=== PATIENT | female | born 1970 | race Caucasian/White ===

== ENCOUNTER → 2017-10-11 08:10 | Outpatient (CLI) | payer OTHER, MEDICAID, SELFPAY ==
[2017-10-11 10:07] LABS: Alanine Aminotransferase 22 IU/L (9-52); Albumin 3.9 g/dL (3.5-5.0); Albumin Globulin Ratio 1.3 (1.0-2.8); Alkaline Phosphatase 59 U/L (38-126); Aspartate Aminotransferase 23 IU/L (14-36); BUN Creatinine Ratio 15.7 (6-22); Bilirubin Total 0.9 mg/dL (0.2-1.3); Blood Urea Nitrogen 11 mg/dL (7-17); Carbon Dioxide 32 mmol/L (22-32); Chloride 101 mmol/L (98-107); Cholesterol 174 mg/dL (140-199); Estimated Glomerular Filt Rate > 60.0 mL/min (>60); Globulin 3.1 g/dL (1.7-4.1); Glucose 82 mg/dL (70-100); HDL Cholesterol 58 mg/dL (40-60); HEMOLYSIS < 15 (0-50); LDL Cholesterol Calculated 106 mg/dL (<100); Potassium 3.8 mmol/L (3.4-5.1); Sodium 139 mmol/L (137-145); Triglycerides 51 mg/dL (35-150)
== END ==
PROVIDERS: PCP Physician Assistant; Visit Provider Physician Assistant
DX: E78.5 Hyperlipidemia, unspecified (principal)
CPT/HCPCS: 36415; 80053; 80061

== ENCOUNTER → 2018-12-25 08:14 | Outpatient (CLI) | payer OTHER, SELFPAY ==
--- NOTE | 2018-12-25 | DI.MG.S_ITS ---
BILATERAL DIGITAL SCREENING MAMMOGRAM 3D/2D WITH CAD: 12/25/2018 CLINICAL: Routine screening. Comparison is made to exams dated: 06/27/2017 mammogram, 04/27/2016 mammogram, 05/28/2014 mammogram, and 03/13/2013 mammogram - [facility]. The tissue of both breasts is heterogeneously dense. This may lower the sensitivity of mammography. Current study was also evaluated with a Computer Aided Detection (CAD) system. No significant masses, calcifications, or other findings are seen in either breast. There has been no significant interval change. IMPRESSION: NEGATIVE There is no mammographic evidence of malignancy. A 1 year screening mammogram is recommended. This exam was interpreted at Station ID: [id number]. NOTE: For mammograms, a report in lay terms will be sent to the patient. Approximately 15% of breast malignancies will not be visualized mammographically. In the management of a palpable breast mass, a negative mammogram must not discourage biopsy of a clinically suspicious lesion. Electronically Signed By: Tom pearson/silvia:12/25/2018 18:47:11 letter sent: Normal Exam ACR BI-RADS Category 1: Negative 3341F
== END ==
PROVIDERS: PCP Physician Assistant; Visit Provider Physician Assistant
DX: Z12.31 Encounter for screening mammogram for malignant neoplasm of breast (principal)
CPT/HCPCS: 77063; 77067

== ENCOUNTER → 2019-01-07 07:33 | Outpatient (CLI) | payer OTHER, MEDICAID, SELFPAY ==
[2019-01-07 09:23] LABS: Add Manual Diff / Slide Review NO; Basophils Absolute Auto 0 /uL (0-100); Basophils Percent Auto 0.5 % (0-2); Eosinophils Absolute Auto 100 /uL (0-450); Eosinophils Percent Auto 2.7 % (2-4); Hematocrit 39.6 % (36-46); Hemoglobin 13.4 g/dL (12.0-16.0); Lymphocytes Absolute Auto 1600 /uL (1100-4500); Lymphocytes Percent Auto 38.2 % (25-40); Mean Corpuscular HGB Conc 33.9 % (30-36); Mean Corpuscular Hemoglobin 28.6 PG (26-34); Mean Corpuscular Volume 84.5 fL (80-100); Monocytes Absolute Auto 500 /uL (0-900); Neutrophils Absolute Auto 2000 /uL (1500-7000); Neutrophils Percent Auto 46.6 % (50-75); Platelet Count 177 X10^3/uL (150-400); Red Blood Cell Count 4.68 X10^6/uL (4.0-5.2); White Blood Cell Count 4.2 X10^3/uL (4.5-11.0)
[2019-01-07 09:33] LABS: Alanine Aminotransferase 19 IU/L (<35); Albumin Globulin Ratio 1.5 (1.0-2.8); Alkaline Phosphatase 71 U/L (38-126); Aspartate Aminotransferase 26 IU/L (14-36); BUN Creatinine Ratio 14.3 (6-22); Blood Urea Nitrogen 10 mg/dL (7-17); Calcium 8.8 mg/dL (8.4-10.2); Carbon Dioxide 29 mmol/L (22-32); Chloride 104 mmol/L (98-107); Cholesterol 197 mg/dL (140-199); Estimated Glomerular Filt Rate > 60.0 mL/min (>60); Globulin 2.7 g/dL (1.7-4.1); Glucose 78 mg/dL (70-100); HDL Cholesterol 60 mg/dL (40-60); HEMOLYSIS < 15 (0-50); LDL Cholesterol Calculated 126 mg/dL (<100); Sodium 140 mmol/L (137-145); Total Protein 6.7 g/dL (6.3-8.2); Triglycerides 56 mg/dL (35-150)
[2019-01-07 09:59] LABS: Thyroid Stimulating Hormone 2.55 uIU/mL (0.47-4.68)
== END ==
PROVIDERS: PCP Physician Assistant; Visit Provider Physician Assistant
DX: Z00.00 Encounter for general adult medical examination without abnormal findings (principal)
CPT/HCPCS: 36415; 80053; 80061; 84443; 85025

== ENCOUNTER → 2019-12-18 08:45 | Outpatient (CLI) | payer OTHER, MEDICAID, SELFPAY ==
[2019-12-18 10:19] LABS: Add Manual Diff / Slide Review NO; Basophils Absolute Auto 0 /uL (0-100); Basophils Percent Auto 0.4 % (0-2); Eosinophils Absolute Auto 100 /uL (0-450); Eosinophils Percent Auto 2.6 % (2-4); Hematocrit 40.8 % (36-46); Lymphocytes Absolute Auto 1600 /uL (1100-4500); Lymphocytes Percent Auto 34.5 % (25-40); Mean Corpuscular HGB Conc 34.4 % (30-36); Mean Corpuscular Hemoglobin 29.2 PG (26-34); Mean Corpuscular Volume 84.9 fL (80-100); Monocytes Absolute Auto 500 /uL (0-900); Monocytes Percent Auto 10.2 % (3-14); Neutrophils Absolute Auto 2400 /uL (1500-7000); Neutrophils Percent Auto 52.3 % (50-75); Platelet Count 154 X10^3/uL (150-400); Red Blood Cell Count 4.81 X10^6/uL (4.0-5.2); White Blood Cell Count 4.5 X10^3/uL (4.5-11.0)
[2019-12-18 10:53] LABS: Alanine Aminotransferase 31 IU/L (<35); Albumin Globulin Ratio 1.3 (1.0-2.8); Alkaline Phosphatase 65 U/L (38-126); Aspartate Aminotransferase 30 IU/L (14-36); BUN Creatinine Ratio 19.4 (6-22); Bilirubin Total 0.9 mg/dL (0.2-1.3); Blood Urea Nitrogen 13 mg/dL (7-17); Carbon Dioxide 31 mmol/L (22-32); Chloride 103 mmol/L (98-107); Cholesterol 201 mg/dL (140-199); Estimated Glomerular Filt Rate > 60.0 mL/min (>60); Globulin 3.2 g/dL (1.7-4.1); Glucose 82 mg/dL (70-100); HDL Cholesterol 59 mg/dL (40-60); HEMOLYSIS < 15 (0-50); LDL Cholesterol Calculated 126 mg/dL (<100); Potassium 4.3 mmol/L (3.4-5.1); Sodium 136 mmol/L (137-145); Total Protein 7.2 g/dL (6.3-8.2); Triglycerides 81 mg/dL (35-150)
[2019-12-18 11:12] LABS: TSH w/ Reflex to FT4 1.91 uIU/mL (0.47-4.68)
== END ==
PROVIDERS: PCP Registered Nurse Diabetes Educator; Referring Provider Registered Nurse Diabetes Educator; Visit Provider Registered Nurse Diabetes Educator
DX: Z00.00 Encounter for general adult medical examination without abnormal findings (principal)
CPT/HCPCS: 36415; 80053; 80061; 84443; 85025

== ENCOUNTER → 2019-12-28 16:16 | Outpatient (CLI) | payer OTHER, MEDICAID, SELFPAY ==
--- NOTE | 2019-12-28 16:17 | DI.MG.S_ITS ---
BILATERAL DIGITAL SCREENING MAMMOGRAM 3D/2D WITH CAD: 12/28/2019 CLINICAL: Routine screening. Comparison is made to exams dated: 12/25/2018 mammogram, 06/27/2017 mammogram, and 04/27/2016 mammogram - [facility]. The tissue of both breasts is heterogeneously dense. This may lower the sensitivity of mammography. Current study was also evaluated with a Computer Aided Detection (CAD) system. No significant masses, calcifications, or other findings are seen in either breast. There has been no significant interval change. IMPRESSION: NEGATIVE There is no mammographic evidence of malignancy. A 1 year screening mammogram is recommended. This exam was interpreted at Station ID: [id number]. NOTE: For mammograms, a report in lay terms will be sent to the patient. Approximately 15% of breast malignancies will not be visualized mammographically. In the management of a palpable breast mass, a negative mammogram must not discourage biopsy of a clinically suspicious lesion. Electronically Signed By: Agata otero/silvia:12/28/2019 17:35:36 letter sent: Normal Exam ACR BI-RADS Category 1: Negative 3341F
== END ==
PROVIDERS: PCP Registered Nurse Diabetes Educator; Referring Provider Registered Nurse Diabetes Educator; Visit Provider Registered Nurse Diabetes Educator
DX: Z12.31 Encounter for screening mammogram for malignant neoplasm of breast (principal)
CPT/HCPCS: 77063; 77067

== ENCOUNTER → 2020-12-16 13:21 | Outpatient (CLI) | payer OTHER, MEDICAID, SELFPAY ==
--- NOTE | 2020-12-16 13:22 | DI.RAD.S_ITS ---
PROCEDURE: XR HIP W PEL IF DONE RT 2V INDICATIONS: right hip pain TECHNIQUE: AP pelvis with lateral view(s) of the right hip(s). COMPARISON: None. FINDINGS: Bones: No fractures or dislocations. Pelvic ring appears intact. No suspicious bony lesions. Soft tissues: The visualized bowel gas pattern is normal. No suspicious soft tissue calcifications. IMPRESSION: Right hip without acute fracture or malalignment. No significant degenerative changes. Dictated by: Aj Benson M.D. on 12/16/2020 at 14:31 Approved by: Aj Benson M.D. on 12/16/2020 at 14:33
== END ==
PROVIDERS: PCP Registered Nurse Diabetes Educator; Referring Provider Registered Nurse; Visit Provider Registered Nurse
DX: M25.551 Pain in right hip (principal)
CPT/HCPCS: 73502

== ENCOUNTER → 2020-12-28 09:15 | Outpatient (CLI) | payer OTHER, MEDICAID, SELFPAY ==
--- NOTE | 2020-12-28 09:16 | DI.MG.S_ITS ---
BILATERAL DIGITAL SCREENING MAMMOGRAM 3D/2D WITH CAD: 12/28/2020 CLINICAL: Routine screening. Comparison is made to exams dated: 12/28/2019 mammogram, 12/25/2018 mammogram, and 06/27/2017 mammogram - [facility]. The tissue of both breasts is heterogeneously dense. This may lower the sensitivity of mammography. Current study was also evaluated with a Computer Aided Detection (CAD) system. No significant masses, calcifications, or other findings are seen in either breast. There has been no significant interval change. IMPRESSION: NEGATIVE There is no mammographic evidence of malignancy. A 1 year screening mammogram is recommended. This exam was interpreted at Station ID: [id number]. NOTE: For mammograms, a report in lay terms will be sent to the patient. Approximately 15% of breast malignancies will not be visualized mammographically. In the management of a palpable breast mass, a negative mammogram must not discourage biopsy of a clinically suspicious lesion. Electronically Signed By: Jeremiah weaver/silvia:12/28/2020 09:45:07 letter sent: Normal Exam ACR BI-RADS Category 1: Negative 3341F
== END ==
PROVIDERS: PCP Registered Nurse Diabetes Educator; Referring Provider Registered Nurse Diabetes Educator; Visit Provider Registered Nurse Diabetes Educator
DX: Z12.31 Encounter for screening mammogram for malignant neoplasm of breast (principal)
CPT/HCPCS: 77063; 77067

== ENCOUNTER → 2020-12-29 08:23 | Outpatient (CLI) | payer OTHER, MEDICAID, SELFPAY ==
[2020-12-29 09:13] LABS: Add Manual Diff / Slide Review NO; Basophils Absolute Auto 0 /uL (0-100); Basophils Percent Auto 0.6 % (0-2); Eosinophils Absolute Auto 100 /uL (0-450); Eosinophils Percent Auto 2.5 % (2-4); Hematocrit 39.3 % (36-46); Hemoglobin 13.5 g/dL (12.0-16.0); Lymphocytes Absolute Auto 1500 /uL (1100-4500); Lymphocytes Percent Auto 36.5 % (25-40); Mean Corpuscular HGB Conc 34.3 % (30-36); Mean Corpuscular Volume 84.5 fL (80-100); Monocytes Absolute Auto 400 /uL (0-900); Monocytes Percent Auto 10.1 % (3-14); Neutrophils Absolute Auto 2100 /uL (1500-7000); Neutrophils Percent Auto 50.3 % (50-75); Platelet Count 195 X10^3/uL (150-400); Red Blood Cell Count 4.65 X10^6/uL (4.0-5.2); Red Cell Distribution Width 13.3 % (11.6-14.8); White Blood Cell Count 4.2 X10^3/uL (4.5-11.0)
[2020-12-29 09:32] LABS: HEMOLYSIS < 15 (0-50); Iron 78 ug/dL (37-170)
[2020-12-29 09:38] LABS: Alanine Aminotransferase 26 IU/L (<35); Albumin 4.2 g/dL (3.5-5.0); Albumin Globulin Ratio 1.5 (1.0-2.8); Alkaline Phosphatase 78 U/L (38-126); Aspartate Aminotransferase 29 IU/L (14-36); BUN Creatinine Ratio 17.6 (6-22); Blood Urea Nitrogen 13 mg/dL (7-17); Carbon Dioxide 27 mmol/L (22-32); Chloride 105 mmol/L (98-107); Cholesterol 206 mg/dL (140-199); Estimated Glomerular Filt Rate > 60.0 mL/min (>60); Globulin 2.8 g/dL (1.7-4.1); Glucose 87 mg/dL (70-100); HDL Cholesterol 66 mg/dL (40-60); HEMOLYSIS < 15 (0-50); LDL Cholesterol Calculated 128 mg/dL (<100); Potassium 3.9 mmol/L (3.4-5.1); Sodium 141 mmol/L (137-145); Triglycerides 58 mg/dL (35-150)
[2020-12-29 09:43] LABS: Percent Iron Saturation 27 % (15-50); Total Iron Binding Capacity 290 ug/dL (265-497); Transferrin 231 mg/dL (206-381)
== END ==
PROVIDERS: PCP Registered Nurse Diabetes Educator; Referring Provider Registered Nurse; Visit Provider Registered Nurse
DX: R53.83 Other fatigue (principal); E78.5 Hyperlipidemia, unspecified; Z86.39 Personal history of other endocrine, nutritional and metabolic disease
CPT/HCPCS: 36415; 80053; 80061; 83540; 83550; 84443; 85025

== ENCOUNTER 2021-02-23 07:30 | Outpatient (RCR) | payer OTHER, MEDICAID, SELFPAY ==
--- NOTE | 2021-01-13 16:38 | PT.OIE ---
Current Diagnoses Pain in right hip (01/13/21) Past Medical History (Last Reviewed 12/23/20 @ 18:38 by KRISTEN Mesa) Abnormal Pap smear of cervix (~2019) Cervical cancer screening Constipation Dyspareunia Fatigue Infertility Mood swings Painful menstrual periods Right hip pain Screening for HPV (human papillomavirus) Visit Care Team Role Provider Type KRISTEN Santamaria Family Provider Advanced Bankruptcy Law Specialist Primary Care Provider Specialty: Medical Address: [address] [place] [address], [facility] Email: [email or web address] KRISTEN Mesa Attending Provider Advanced Bankruptcy Law Specialist Referring Provider Specialty: Medical Address: [address] [place] [address], [id number] Email: 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 PT-OP-B Current Condition Start: 01/12/21 17:19 Freq: Status: Active Protocol: Document 01/13/21 12:50 LRN (Rec: 01/13/21 16:35 LRN [id number]) Current Condition History of Current Condition Onset Date 6 months ago Current Complaints R posterior hip pain sometimes with walking when WBing on it . History of Current Condition R posterior hip pain sometimes feels it walking and sometime not. [place] pain in the R hip when lying on it for the past 20 yrs ago. Pt complains of arthritis and pain all over that comes and goes. Prior Treatments and Tests X-ray of hip showed nothing. Developmental History Developmental History Pt is [place] [facility] . Does yoga, hasn't had great motion in the R hip. Treatment Goals Patient/Caregiver Goals Pt goal is to: -Learn what good yoga poses and exercises she can do to keep from getting worse. -Learn to walk more evenly. 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 Baseline Function- Recreation/Hobbies Walks daily 45-60' with dog, hike 1-1.5 hrs 1x/week, yoga 2x/week. Baseline Function- Other Mother of a 9 yo son, spouse. Current Functional Impairments (Reported) Functional Limitations- ADL's Sitting 1.5 hr before becoming uncomfortable Functional Limitations- Mobility/Gait Sometimes R hip hurts with walking. Functional Limitations- Work/School Sometimes r hip hurts sitting. Personal Factors Other Personal Factors That May Effect As a was treated for Therapy/Recovery underdeveloped hips. PT-OP-C Subjective Start: 01/12/21 17:19 Freq: Status: Active Protocol: Document 01/13/21 12:50 LRN (Rec: 01/13/21 16:35 LRN [id number]) Patient Questionnaires Lower Extremity Functional Scale LEFS Score 72 LEFS Impairment 1 to 19% Impaired (Score 63-79 ) OP-PT Pain Assessment Pain Assessment Grid Paper Pain Assessment Grid Completed Yes Location Low back/sacrum Pain Location Details Low back at sacral level Intensity 3 Scale Used Numeric (0 - 10) Description Dull Frequency Intermittent Other Pain Aggravating Factors Mid cycle of period R hip Pain Location Details R posterior hip Intensity 3 Scale Used Numeric (0 - 10) Description Dull Frequency Frequent Other Pain Aggravating Factors Yoga pose fingers to floor ( uncomfortable tension in hamstrings) PT-OP-G Mobility & Gait Start: 01/12/21 17:19 Freq: Status: Active Protocol: Document 01/13/21 12:50 LRN (Rec: 01/13/21 16:35 LRN [id number]) OP Gait Assessment Gait Gait Assistance Required: Independent Assistive Devices Assistive Device None Gait Deviations General Gait Pattern Antalgic Factors Limiting Gait Function Factors Limiting Gait Function Decreased Strength,Pain Stair Climbing Evaluation Evaluation Level of Assist On Stairs Independent Devices Stair Climbing Assistive Devices None Technique/Endurance Stair Climbing Direction Ascend and Descend Stair Climbing Technique Step Over Step PT-OP-H Neuro Start: 01/12/21 17:19 Freq: Status: Active Protocol: Document 01/13/21 12:50 LRN (Rec: 01/13/21 16:35 LRN [id number]) Sensation Evaluation Gross Sensation Gross Sensation WNL PT-OP-J Posture/Palpation/Skin Start: 01/12/21 17:19 Freq: Status: Active Protocol: Document 01/13/21 12:50 LRN (Rec: 01/13/21 16:35 LRN [id number]) Posture Evaluation Position Standing L-Spine Posture Increased Lordosis Pelvis Posture (R) Iliac Crest Superior Knee Posture (L) Genu Varus,(R) Genu Varus Comments Posture Comments R high PSIS, greater trochanter Palpation Assessment Location Sacrum Palpation Location Sacrum Palpation Details Decrease PA at ALA & LASHAE on right. Decreased inferior glide on the left. R hip Palpation Location R Iscial Tuberosity Palpation Details Pt reporting tenderness more internal. PT-OP-K Range of Motion Start: 01/12/21 17:19 Freq: Status: Active Protocol: Document 01/13/21 12:50 LRN (Rec: 01/13/21 16:35 LRN [id number]) Hip Goniometric Range of Motion Hip Right Passive Hip ROM WFL No Testing Position Supine Straight Leg Raise 75 Internal Rotation 30 External Rotation 55 Comments Pain inside joint. Left Passive Hip ROM WFL Yes Testing Position Supine Straight Leg Raise 110 Internal Rotation 35 External Rotation 65 Knee Goniometric Range of Motion Knee Right Knee ROM WFL Yes Patient Position Supine Left Knee ROM WFL Yes Patient Position Supine PT-OP-L Special Tests Start: 01/12/21 17:19 Freq: Status: Active Protocol: Document 01/13/21 12:50 LRN (Rec: 01/13/21 16:35 LRN [id number]) Special Tests Hip Special Tests Thigh Thrust Test Results - right Straight Leg Raise Test Results possible + right Comments 75 deg Mark Test Results + right Comments Pain in buttock Stinchfield Resisted Hip Flexion Test Results - right Scour Test Test Results - right Log Roll Test Test Results - right BLAKE Test Results + right PT-OP-M Strength Start: 01/12/21 17:19 Freq: Status: Active Protocol: Document 01/13/21 12:50 LRN (Rec: 01/13/21 16:35 LRN [id number]) Hip Strength Hip Manual Muscle Testing Right Comments Generally 5/5. Pain with IR>ER Left Comments Generally 5/5 . PT-OP-Q Treatments Start: 01/12/21 17:19 Freq: Status: Active Protocol: Document 01/13/21 12:50 LRN (Rec: 01/13/21 16:35 LRN [id number]) Therapeutic Exercises Supine Exercises R LE hamstring/neural stretch Side right Reps/Minutes 2' Comments Phys & v cuing for max tolerated stretch precaution and proper performance. Self-Care/Home Management Treatment Education Other Education Discussed results of evaluation, goals, and plan of care (POC). Pt agreeable to goals and POC. Activities Self-Care/Home Management Activities Issued & reviewed HEP: R LE hamstring/neural stretch PT-OP-T Assessment and Plan Start: 01/12/21 17:19 Freq: Status: Active Protocol: Document 01/13/21 12:50 LRN (Rec: 01/13/21 16:35 LRN [id number]) Physical Therapy Assessment Rehab Potential Rehabilitation Potential Excellent Evaluation Complexity Number of Personal Factors/Comorbidities 1-2 Number of Body Systems Impaired 4 or More Clinical Presentation at Evaluation Evolving Impairments Impairments Activity Tolerance,Pain,ROM, Soft Tissue Mobility Goals Three Impairment Decreased R hip mobility Impairment PSLR: 75 right, 110 left ER: 55 right, 65 left Short Term Goal (STG) Pt will be independent in a hip stretch ex program incorporating yoga for stretch . Drafter Goal (LTG) Improve R hip mobility (PSLR & ER) with pt able to go up/ down stairs without pain and a normal gait pattern. LTG Duration 04/13/21 Two Impairment R posterior hip & low back/ sacral pain rated 3/10 Short Term Goal (STG) Decrease hip pain with pt able to put socks/shoes on without pain. STG Duration 01/27/21 Mcc Goal (LTG) Decrease pain to 0-1/10 with pt able to sit for 1 hour without an increase in pain. LTG Duration 04/13/21 One Impairment Lacks appropriate self care HEP. Mcc Goal (LTG) Pt will be independent with a self care HEP of flexibility exercises. LTG Duration 04/13/21 Assessment Summary Assessment Pt presents with R hamstring tightness with possible lumbar neural involvement (PSLR 75 deg's). She has pain in the R buttock with gait when in weightbearing. Her R buttock pain is not palpable because it is described as more internal. The pt was mostly negative with testing for R SIJ dysfunction and is + for tight hip flexors. She presents with an open pattern of the pelvis and mobility limitations with hip ER, PSLR & flexion; therefore she appears to have soft tissue dysfunction of her R hip muscles attached to the Ischial Tuberosity, although she has no pain with palpation . Further assessment for R hamstring, Sacral nerve (S2-S4 ) or lumbar involvment will be done at the next appointment. The pt will benefit from skilled physical therapy to achieve the above stated goal. Physical Therapy Plan Frequency and Duration Frequency of Treatment 2x/Week Plan of Care Start Date 01/13/21 Plan of Care End Date 04/13/21 Therapeutic Interventions Therapeutic Interventions Gait Training,Home Exercise Program,Joint Mobilizations, Manual Therapy,Neuromuscular Re-education,Patient/Caregiver Education,Self-Care/Home Management,Soft Tissue Mobilization,Therapeutic Activities,Therapeutic Exercises Modalities Cold Pack/Ice Massage,Hot Packs Next Visit Focus/Plan Next Note Type Treatment Note Next Visit Plan Review LE neural stretch, start correction for open pattern (Check & treat shear, R PA, R LASHAE PA & inferior glide of L sacrum). Assess core and hamstring strength and assess for hamstring strain or L/S involvement (try lumbar traction). Correct gait deviations.
--- NOTE | 2021-01-13 16:39 | PT.OPPOC ---
Addendum entered and electronically signed by Jenifer Gupta, PT 01/13/21 16:44: Send Original Note: Physical, Occupational & Speech Therapy At [facility] Current Diagnoses Pain in right hip (01/13/21) Visit Care Team Role Provider Type KRISTEN Santamaria Family Provider Advanced [employer] Craftsman Primary Care Provider Specialty: Medical Address: [address] [place] [address], [facility] Email: [email or web address] KRISTEN Mesa Attending Provider [employer] Craftsman Referring Provider Specialty: Medical Address: [address] [place] [address], [id number] Email: [email or web address] Plan Of Care PT-OP-T Assessment and Plan Start: 01/12/21 17:19 Freq: Status: Active Protocol: Document 01/13/21 12:50 LRN (Rec: 01/13/21 16:35 LRN [id number]) Physical Therapy Assessment Rehab Potential Rehabilitation Potential Excellent Evaluation Complexity Number of Personal Factors/Comorbidities 1-2 Number of Body Systems Impaired 4 or More Clinical Presentation at Evaluation Evolving Impairments Impairments Activity Tolerance,Pain,ROM, Soft Tissue Mobility Goals Three Impairment Decreased R hip mobility Impairment PSLR: 75 right, 110 left ER: 55 right, 65 left Short Term Goal (STG) Pt will be independent in a hip stretch ex program incorporating yoga for stretch . Group Home Goal (LTG) Improve R hip mobility (PSLR & ER) with pt able to go up/ down stairs without pain and a normal gait pattern. LTG Duration 04/13/21 Two Impairment R posterior hip & low back/ sacral pain rated 3/10 Short Term Goal (STG) Decrease hip pain with pt able to put socks/shoes on without pain. STG Duration 01/27/21 Group Home Goal (LTG) Decrease pain to 0-1/10 with pt able to sit for 1 hour without an increase in pain. LTG Duration 04/13/21 One Impairment Lacks appropriate self care HEP. Group Home Goal (LTG) Pt will be independent with a self care HEP of flexibility exercises. LTG Duration 04/13/21 Assessment Summary Assessment Pt presents with R hamstring tightness with possible lumbar neural involvement (PSLR 75 deg's). She has pain in the R buttock with gait when in weightbearing. Her R buttock pain is not palpable because it is described as more internal. The pt was mostly negative with testing for R SIJ dysfunction and is + for tight hip flexors. She presents with an open pattern of the pelvis and mobility limitations with hip ER, PSLR & flexion; therefore she appears to have soft tissue dysfunction of her R hip muscles attached to the Ischial Tuberosity, although she has no pain with palpation . Further assessment for R hamstring, Sacral nerve (S2-S4 ) or lumbar involvment will be done at the next appointment. The pt will benefit from skilled physical therapy to achieve the above stated goal. Physical Therapy Plan Frequency and Duration Frequency of Treatment 2x/Week Plan of Care Start Date 01/13/21 Plan of Care End Date 04/13/21 Therapeutic Interventions Therapeutic Interventions Gait Training,Home Exercise Program,Joint Mobilizations, Manual Therapy,Neuromuscular Re-education,Patient/Caregiver Education,Self-Care/Home Management,Soft Tissue Mobilization,Therapeutic Activities,Therapeutic Exercises Modalities Cold Pack/Ice Massage,Hot Packs Next Visit Focus/Plan Next Note Type Treatment Note Next Visit Plan Review LE neural stretch, start correction for open pattern (Check & treat shear, R PA, R LASHAE PA & inferior glide of L sacrum). Assess core and hamstring strength and assess for hamstring strain or L/S involvement (try lumbar traction). Correct gait deviations. Plan of Care Dates Plan of Care Start Date 01/13/21 Plan of Care End Date 04/13/21 Electronically Signed by: Jenifer Gupta, PT 01/13/21 [id number] Please Sign and Return: I have reviewed this Plan of Care and certify that the skilled therapy services above are required to meet the patient?s needs. Physician Signature Date Printed Name and Credentials Clinical Instructor Signature Printed Name and Credentials
--- NOTE | 2021-01-17 14:42 | PT.OTN ---
Current Diagnoses Pain in right hip (01/17/21) Physical Therapy Treatment Note PT-OP-A Visit Information Start: 01/12/21 17:19 Freq: Status: Active Protocol: Document 01/17/21 13:42 LRN (Rec: 01/17/21 14:40 LRN [id number]) Out-Patient Physical Therapy Visit Information Visit Information Visit Type Treatment Note Visit Note Pt 12' late. 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 PT-OP-B Current Condition Start: 01/12/21 17:19 Freq: Status: Active Protocol: Document 01/13/21 12:50 LRN (Rec: 01/13/21 16:35 LRN [id number]) Current Condition History of Current Condition Onset Date 6 months ago Current Complaints R posterior hip pain sometimes with walking when WBing on it . History of Current Condition R posterior hip pain sometimes feels it walking and sometime not. [place] pain in the R hip when lying on it for the past 20 yrs ago. Pt complains of arthritis and pain all over that comes and goes. Prior Treatments and Tests X-ray of hip showed nothing. Developmental History Developmental History Pt is [employer] of [employer] . Does yoga, hasn't had great motion in the R hip. Treatment Goals Patient/Caregiver Goals Pt goal is to: -Learn what good yoga poses and exercises she can do to keep from getting worse. -Learn to walk more evenly. 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 Baseline Function- Recreation/Hobbies Walks daily 45-60' with dog, hike 1-1.5 hrs 1x/week, yoga 2x/week. Baseline Function- Other Mother of a 9 yo son, spouse. Current Functional Impairments (Reported) Functional Limitations- ADL's Sitting 1.5 hr before becoming uncomfortable Functional Limitations- Mobility/Gait Sometimes R hip hurts with walking. Functional Limitations- Work/School Sometimes r hip hurts sitting. Personal Factors Other Personal Factors That May Effect As a was treated for Therapy/Recovery underdeveloped hips. PT-OP-C Subjective Start: 01/12/21 17:19 Freq: Status: Active Protocol: Document 01/17/21 13:42 LRN (Rec: 01/17/21 14:40 LRN [id number]) OP-PT Subjective Patient Comments Patient Comments Same PT-OP-G Mobility & Gait Start: 01/12/21 17:19 Freq: Status: Active Protocol: Document 01/13/21 12:50 LRN (Rec: 01/13/21 16:35 LRN [id number]) OP Gait Assessment Gait Gait Assistance Required: Independent Assistive Devices Assistive Device None Gait Deviations General Gait Pattern Antalgic Factors Limiting Gait Function Factors Limiting Gait Function Decreased Strength,Pain Stair Climbing Evaluation Evaluation Level of Assist On Stairs Independent Devices Stair Climbing Assistive Devices None Technique/Endurance Stair Climbing Direction Ascend and Descend Stair Climbing Technique Step Over Step PT-OP-H Neuro Start: 01/12/21 17:19 Freq: Status: Active Protocol: Document 01/13/21 12:50 LRN (Rec: 01/13/21 16:35 LRN [id number]) Sensation Evaluation Gross Sensation Gross Sensation WNL PT-OP-J Posture/Palpation/Skin Start: 01/12/21 17:19 Freq: Status: Active Protocol: Document 01/13/21 12:50 LRN (Rec: 01/13/21 16:35 LRN [id number]) Posture Evaluation Position Standing L-Spine Posture Increased Lordosis Pelvis Posture (R) Iliac Crest Superior Knee Posture (L) Genu Varus,(R) Genu Varus Comments Posture Comments R high PSIS, greater trochanter Palpation Assessment Location Sacrum Palpation Location Sacrum Palpation Details Decrease PA at ALA & LASHAE on right. Decreased inferior glide on the left. R hip Palpation Location R Iscial Tuberosity Palpation Details Pt reporting tenderness more internal. PT-OP-K Range of Motion Start: 01/12/21 17:19 Freq: Status: Active Protocol: Document 01/13/21 12:50 LRN (Rec: 01/13/21 16:35 LRN [id number]) Hip Goniometric Range of Motion Hip Right Passive Hip ROM WFL No Testing Position Supine Straight Leg Raise 75 Internal Rotation 30 External Rotation 55 Comments Pain inside joint. Left Passive Hip ROM WFL Yes Testing Position Supine Straight Leg Raise 110 Internal Rotation 35 External Rotation 65 Knee Goniometric Range of Motion Knee Right Knee ROM WFL Yes Patient Position Supine Left Knee ROM WFL Yes Patient Position Supine PT-OP-L Special Tests Start: 01/12/21 17:19 Freq: Status: Active Protocol: Document 01/13/21 12:50 LRN (Rec: 01/13/21 16:35 LRN [id number]) Special Tests Hip Special Tests Thigh Thrust Test Results - right Straight Leg Raise Test Results possible + right Comments 75 deg Mark Test Results + right Comments Pain in buttock Stinchfield Resisted Hip Flexion Test Results - right Scour Test Test Results - right Log Roll Test Test Results - right BLAKE Test Results + right PT-OP-M Strength Start: 01/12/21 17:19 Freq: Status: Active Protocol: Document 01/13/21 12:50 LRN (Rec: 01/13/21 16:35 LRN [id number]) Hip Strength Hip Manual Muscle Testing Right Comments Generally 5/5. Pain with IR>ER Left Comments Generally 5/5 . PT-OP-Q Treatments Start: 01/12/21 17:19 Freq: Status: Active Protocol: Document 01/17/21 13:42 LRN (Rec: 01/17/21 14:40 LRN [id number]) Therapeutic Exercises Supine Exercises R LE hamstring/neural stretch Supine Exercise Name R Hamstring/LE neural stretch Side right Reps/Minutes 3' Comments Phys & v cuing for max tolerated stretch. Sitting Exercises Hamstring stretch Sitting Exercise Name R Hamstring/LE neural stretch Side right Reps/Minutes 3' Comments Phys & v cuing for max tolerated stretch precaution and proper performance. Manual Therapy Treatment Soft Tissue Mobilization Sacrum Body Location R ALA PA, R LASHAE PA, R LASHAE shear to left. Mobilization Type Myofascial Release,Sustained Pressure Intensity/Depth Moderate Body Position Prone x 2 & Supine PT-OP-T Assessment and Plan Start: 01/12/21 17:19 Freq: Status: Active Protocol: Document 01/17/21 13:42 LRN (Rec: 01/17/21 14:40 LRN [id number]) Physical Therapy Assessment Goals Three Impairment Decreased R hip mobility Impairment PSLR: 75 right, 110 left ER: 55 right, 65 left Short Term Goal (STG) Pt will be independent in a hip stretch ex program incorporating yoga for stretch . Senior Living Goal (LTG) Improve R hip mobility (PSLR & ER) with pt able to go up/ down stairs without pain and a normal gait pattern. LTG Duration 04/13/21 Two Impairment R posterior hip & low back/ sacral pain rated 3/10 Short Term Goal (STG) Decrease hip pain with pt able to put socks/shoes on without pain. STG Duration 01/27/21 Pharmacist Aide Goal (LTG) Decrease pain to 0-1/10 with pt able to sit for 1 hour without an increase in pain. LTG Duration 04/13/21 One Impairment Lacks appropriate self care HEP. Senior Living Goal (LTG) Pt will be independent with a self care HEP of flexibility exercises. (01/17/21: HEP added: R hamstring/LE neural stretch). LTG Duration 04/13/21 (01/17/21: Progressed) Progress Towards Goals Progress Comments Progressed HEP. Assessment Summary Assessment Pt needed review of LE neural/ hamstring stretch and appeared to have a good understanding after review/training. Pt had no c/o R buttock pain to start. Did not check soft tissue dysfunction of her R hip muscles attached to the Ischial Tuberosity due to no c /o R hip pain. Pt Still in open pattern (although has not given ), has stiffness at R sacral sulcus, sacrum and R innominate. Stiffness probably due to response to fall in the past. Physical Therapy Plan Frequency and Duration Frequency of Treatment 2x/Week Plan of Care Start Date 01/13/21 Plan of Care End Date 04/13/21 Next Visit Focus/Plan Next Note Type Treatment Note Next Visit Plan Recheck PSLR. Assess core and hamstring strength, Assess for hamstring strain or L/S involvement (try lumbar traction if pain). Assess response to correction for open pattern (Check shear sacrum to left, R PA, R LASHAE PA & inferior glide of R sacrum). Correct gait deviations.
--- NOTE | 2021-01-31 15:34 | PT.OTN ---
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 PT-OP-B Current Condition Start: 01/12/21 17:19 Freq: Status: Active Protocol: Document 01/13/21 12:50 LRN (Rec: 01/13/21 16:35 LRN [id number]) Current Condition History of Current Condition Onset Date 6 months ago Current Complaints R posterior hip pain sometimes with walking when WBing on it . History of Current Condition R posterior hip pain sometimes feels it walking and sometime not. [place] pain in the R hip when lying on it for the past 20 yrs ago. Pt complains of arthritis and pain all over that comes and goes. Prior Treatments and Tests X-ray of hip showed nothing. Developmental History Developmental History Pt is [place] of [facility] . Does yoga, hasn't had great motion in the R hip. Treatment Goals Patient/Caregiver Goals Pt goal is to: -Learn what good yoga poses and exercises she can do to keep from getting worse. -Learn to walk more evenly. 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 Baseline Function- Recreation/Hobbies Walks daily 45-60' with dog, hike 1-1.5 hrs 1x/week, yoga 2x/week. Baseline Function- Other Mother of a 9 yo son, spouse. Current Functional Impairments (Reported) Functional Limitations- ADL's Sitting 1.5 hr before becoming uncomfortable Functional Limitations- Mobility/Gait Sometimes R hip hurts with walking. Functional Limitations- Work/School Sometimes r hip hurts sitting. Personal Factors Other Personal Factors That May Effect As a was treated for Therapy/Recovery underdeveloped hips. PT-OP-C Subjective Start: 01/12/21 17:19 Freq: Status: Active Protocol: Document 01/31/21 14:17 LRN (Rec: 01/31/21 15:32 LRN [id number]) OP-PT Subjective Patient Comments Patient Comments Yoga move used to be tight and uncomfortable, but not anymore. Getting a little pain in buttock walking, states it's better. [place] something was released the last visit. PT-OP-G Mobility & Gait Start: 01/12/21 17:19 Freq: Status: Active Protocol: Document 01/13/21 12:50 LRN (Rec: 01/13/21 16:35 LRN [id number]) OP Gait Assessment Gait Gait Assistance Required: Independent Assistive Devices Assistive Device None Gait Deviations General Gait Pattern Antalgic Factors Limiting Gait Function Factors Limiting Gait Function Decreased Strength,Pain Stair Climbing Evaluation Evaluation Level of Assist On Stairs Independent Devices Stair Climbing Assistive Devices None Technique/Endurance Stair Climbing Direction Ascend and Descend Stair Climbing Technique Step Over Step PT-OP-H Neuro Start: 01/12/21 17:19 Freq: Status: Active Protocol: Document 01/13/21 12:50 LRN (Rec: 01/13/21 16:35 LRN [id number]) Sensation Evaluation Gross Sensation Gross Sensation WNL PT-OP-J Posture/Palpation/Skin Start: 01/12/21 17:19 Freq: Status: Active Protocol: Document 01/13/21 12:50 LRN (Rec: 01/13/21 16:35 LRN [id number]) Posture Evaluation Position Standing L-Spine Posture Increased Lordosis Pelvis Posture (R) Iliac Crest Superior Knee Posture (L) Genu Varus,(R) Genu Varus Comments Posture Comments R high PSIS, greater trochanter Palpation Assessment Location Sacrum Palpation Location Sacrum Palpation Details Decrease PA at ALA & LASHAE on right. Decreased inferior glide on the left. R hip Palpation Location R Iscial Tuberosity Palpation Details Pt reporting tenderness more internal. PT-OP-K Range of Motion Start: 01/12/21 17:19 Freq: Status: Active Protocol: Document 01/31/21 14:17 LRN (Rec: 01/31/21 15:32 LRN [id number]) Hip Goniometric Range of Motion Hip Right Passive Hip ROM WFL No Testing Position Supine Straight Leg Raise 85 Internal Rotation 45 External Rotation 65 Left Passive Testing Position Supine Straight Leg Raise 100 Internal Rotation 40 External Rotation 70 PT-OP-L Special Tests Start: 01/12/21 17:19 Freq: Status: Active Protocol: Document 01/13/21 12:50 LRN (Rec: 01/13/21 16:35 LRN [id number]) Special Tests Hip Special Tests Thigh Thrust Test Results - right Straight Leg Raise Test Results possible + right Comments 75 deg Mark Test Results + right Comments Pain in buttock Stinchfield Resisted Hip Flexion Test Results - right Scour Test Test Results - right Log Roll Test Test Results - right BLAKE Test Results + right PT-OP-M Strength Start: 01/12/21 17:19 Freq: Status: Active Protocol: Document 01/31/21 14:17 LRN (Rec: 01/31/21 15:32 LRN [id number]) Trunk Strength Trunk Manual Muscle Testing Testing Position Supine Rotation Left 3+ Fair+ Rotation Right 4 Good Core Stabilization L Trunk/pelvic rotation weakness with MMT of R hip flexion. Knee Strength Knee Manual Muscle Testing Right Flexion (S2) 5 Normal Left Flexion (S2) 5 Normal PT-OP-Q Treatments Start: 01/12/21 17:19 Freq: Status: Active Protocol: Document 01/31/21 14:17 LRN (Rec: 01/31/21 15:32 LRN [id number]) Therapeutic Exercises Supine Exercises Piriformis stretch Supine Exercise Name Piriformis stretch Side right Reps/Minutes 2' Fig 4 stretch Supine Exercise Name Fig 4, ER stretch f/b active stretch x 10 Side right Reps/Minutes 3' Passive stretch to hip ER Side bilateral Reps/Minutes 4' Comments ROM taken Passive stretch to hip IR Side bilateral Reps/Minutes 4' Comments ROM taken Prone Exercises Core stable w/rosemarie knee flex Prone Exercise Name Rosemarie knee flex w/stable core Equipment Used self palp of fingers on ASIS Reps/Minutes 10' Comments Much v & phys cuing at ASIS' Sitting Exercises Hamstring stretch Sitting Exercise Name R Hamstring/LE neural stretch Side right Reps/Minutes 3' Comments PSLR ROM taken bilaterally Standing Exercises Hamstring stretch Standing Exercise Name Hamstring stretch with fingers on floor Reps/Minutes 3' Manual Therapy Treatment Soft Tissue Mobilization Sacrum Body Location L ALA PA, L LASHAE PA, R sacrum shear to left. Mobilization Type Myofascial Release,Sustained Pressure Intensity/Depth Moderate Body Position Prone x 2 & Supine PT-OP-T Assessment and Plan Start: 01/12/21 17:19 Freq: Status: Active Protocol: Document 01/31/21 14:17 LRN (Rec: 01/31/21 15:32 LRN [id number]) Physical Therapy Assessment Goals Three Impairment Decreased R hip mobility Impairment PSLR: 75 right, 110 left ER: 55 right, 65 left Short Term Goal (STG) Pt will be independent in a hip stretch ex program incorporating yoga for stretch . Operating Room Tech Goal (LTG) Improve R hip mobility (PSLR & ER) with pt able to go up/ down stairs without pain and a normal gait pattern. LTG Duration 04/13/21 Two Impairment R posterior hip & low back/ sacral pain rated 3/10 Short Term Goal (STG) Decrease hip pain with pt able to put socks/shoes on without pain. STG Duration 01/27/21 Operating Room Tech Goal (LTG) Decrease pain to 0-1/10 with pt able to sit for 1 hour without an increase in pain. LTG Duration 04/13/21 One Impairment Lacks appropriate self care HEP. Mcfp Goal (LTG) Pt will be independent with a self care HEP of flexibility exercises. (01/17/21: HEP added: R hamstring/LE neural stretch). LTG Duration 04/13/21 (01/17/21: Progressed) Progress Towards Goals Progress Comments R PSLR mobility is improving from 75 to 85 deg's (left is 100 deg's). Assessment Summary Assessment + response to therapy last visit with pt feeling something released. Pt has not been . Core weakness (pelvic L rotation) with MMT of R hip flex. Pt is not able to maintain core stability with prone knee bends. Hip mobility is improving. Physical Therapy Plan Frequency and Duration Frequency of Treatment 2x/Week Plan of Care Start Date 01/13/21 Plan of Care End Date 04/13/21 Next Visit Focus/Plan Next Note Type Treatment Note Next Visit Plan Add HEP: R Hip ER & Piriformis stretch. Assess core (MMT), Assess L/S involvement (try lumbar traction if pain). Check shear sacrum to left. Correct gait deviations.
--- NOTE | 2021-02-03 15:24 | PT.OTN ---
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 PT-OP-B Current Condition Start: 01/12/21 17:19 Freq: Status: Active Protocol: Document 01/13/21 12:50 LRN (Rec: 01/13/21 16:35 LRN [id number]) Current Condition History of Current Condition Onset Date 6 months ago Current Complaints R posterior hip pain sometimes with walking when WBing on it . History of Current Condition R posterior hip pain sometimes feels it walking and sometime not. [place] pain in the R hip when lying on it for the past 20 yrs ago. Pt complains of arthritis and pain all over that comes and goes. Prior Treatments and Tests X-ray of hip showed nothing. Developmental History Developmental History Pt is [place] of [facility] . Does yoga, hasn't had great motion in the R hip. Treatment Goals Patient/Caregiver Goals Pt goal is to: -Learn what good yoga poses and exercises she can do to keep from getting worse. -Learn to walk more evenly. 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 Baseline Function- Recreation/Hobbies Walks daily 45-60' with dog, hike 1-1.5 hrs 1x/week, yoga 2x/week. Baseline Function- Other Mother of a 9 yo son, spouse. Current Functional Impairments (Reported) Functional Limitations- ADL's Sitting 1.5 hr before becoming uncomfortable Functional Limitations- Mobility/Gait Sometimes R hip hurts with walking. Functional Limitations- Work/School Sometimes r hip hurts sitting. Personal Factors Other Personal Factors That May Effect As a was treated for Therapy/Recovery underdeveloped hips. PT-OP-C Subjective Start: 01/12/21 17:19 Freq: Status: Active Protocol: Document 02/03/21 14:16 LRN (Rec: 02/03/21 15:24 LRN [id number]) OP-PT Subjective Patient Comments Patient Comments Pain in the sacral region is reduced, not at the very bottom of the sit bone. Happy she can do a yoga stretch pose comfortably. Flew down to [place] and was able to sit during the flight without a problem. PT-OP-G Mobility & Gait Start: 01/12/21 17:19 Freq: Status: Active Protocol: Document 01/13/21 12:50 LRN (Rec: 01/13/21 16:35 LRN [id number]) OP Gait Assessment Gait Gait Assistance Required: Independent Assistive Devices Assistive Device None Gait Deviations General Gait Pattern Antalgic Factors Limiting Gait Function Factors Limiting Gait Function Decreased Strength,Pain Stair Climbing Evaluation Evaluation Level of Assist On Stairs Independent Devices Stair Climbing Assistive Devices None Technique/Endurance Stair Climbing Direction Ascend and Descend Stair Climbing Technique Step Over Step PT-OP-H Neuro Start: 01/12/21 17:19 Freq: Status: Active Protocol: Document 01/13/21 12:50 LRN (Rec: 01/13/21 16:35 LRN [id number]) Sensation Evaluation Gross Sensation Gross Sensation WNL PT-OP-J Posture/Palpation/Skin Start: 01/12/21 17:19 Freq: Status: Active Protocol: Document 01/13/21 12:50 LRN (Rec: 01/13/21 16:35 LRN [id number]) Posture Evaluation Position Standing L-Spine Posture Increased Lordosis Pelvis Posture (R) Iliac Crest Superior Knee Posture (L) Genu Varus,(R) Genu Varus Comments Posture Comments R high PSIS, greater trochanter Palpation Assessment Location Sacrum Palpation Location Sacrum Palpation Details Decrease PA at ALA & LASHAE on right. Decreased inferior glide on the left. R hip Palpation Location R Iscial Tuberosity Palpation Details Pt reporting tenderness more internal. PT-OP-K Range of Motion Start: 01/12/21 17:19 Freq: Status: Active Protocol: Document 01/31/21 14:17 LRN (Rec: 01/31/21 15:32 LRN [id number]) Hip Goniometric Range of Motion Hip Right Passive Hip ROM WFL No Testing Position Supine Straight Leg Raise 85 Internal Rotation 45 External Rotation 65 Left Passive Testing Position Supine Straight Leg Raise 100 Internal Rotation 40 External Rotation 70 PT-OP-L Special Tests Start: 01/12/21 17:19 Freq: Status: Active Protocol: Document 01/13/21 12:50 LRN (Rec: 01/13/21 16:35 LRN [id number]) Special Tests Hip Special Tests Thigh Thrust Test Results - right Straight Leg Raise Test Results possible + right Comments 75 deg Mark Test Results + right Comments Pain in buttock Stinchfield Resisted Hip Flexion Test Results - right Scour Test Test Results - right Log Roll Test Test Results - right BLAKE Test Results + right PT-OP-M Strength Start: 01/12/21 17:19 Freq: Status: Active Protocol: Document 01/31/21 14:17 LRN (Rec: 01/31/21 15:32 LRN [id number]) Trunk Strength Trunk Manual Muscle Testing Testing Position Supine Rotation Left 3+ Fair+ Rotation Right 4 Good Core Stabilization L Trunk/pelvic rotation weakness with MMT of R hip flexion. Knee Strength Knee Manual Muscle Testing Right Flexion (S2) 5 Normal Left Flexion (S2) 5 Normal PT-OP-Q Treatments Start: 01/12/21 17:19 Freq: Status: Active Protocol: Document 02/03/21 14:16 LRN (Rec: 02/03/21 15:24 LRN [id number]) Cardio Equipment Bicycle (Upright) Duration (Minutes) 6 Resistance 4 Seat Position 7 Therapeutic Exercises Supine Exercises Passive hamstring stretch Supine Exercise Name Hamstring stretch w/PSLR taken Side bilateral Reps/Minutes 3' Piriformis stretch Supine Exercise Name Piriformis stretch w/slight arch in back Side right Reps/Minutes 4' Comments Extra time to determine max stretch and proper positioning Fig 4 stretch Supine Exercise Name Fig 4, ER stretch f/b active stretch x 10 Side right Reps/Minutes 3' Passive stretch to hip ER Side bilateral Reps/Minutes 1' Comments ROM taken Passive stretch to hip IR Side bilateral Reps/Minutes 1' Comments ROM taken R LE hamstring/neural stretch Supine Exercise Name R Hamstring/LE neural stretch Side right Reps/Minutes 3' Comments Phys & v cuing for max tolerated stretch. Standing Exercises Postural training Standing Exercise Name Standing against a wall for proper postural awareness Reps/Minutes 3'x 3 Comments Pt pelvis is in L rot and needs cuing to normalize against wall. Core stab/trunk R rot Standing Exercise Name Core Stab w/trunk R rot Side right Reps/Minutes 10' Comments Much phy/verbal cuing to keep pelvis stable during trunk R rotation Hamstring stretch Standing Exercise Name Hamstring stretch with fingers on floor Reps/Minutes 1' Comments No complaints of discomfort. Gait Training Gait Activity Stair ambulation Description UP/DOWN stairs Device Used None Level of Assistance Independent Distance/Duration x 1 Treatment Focus Normal gait pattern without pain Self-Care/Home Management Treatment Education Patient Education Home Exercise Program Activities Self-Care/Home Management Activities HEP issued & reviewed: R Fig 4 & Piriformis stretch PT-OP-T Assessment and Plan Start: 01/12/21 17:19 Freq: Status: Active Protocol: Document 02/03/21 14:16 LRN (Rec: 02/03/21 15:24 LRN [id number]) Physical Therapy Assessment Goals Three Impairment Decreased R hip mobility Impairment PSLR: 75 right, 110 left ER: 55 right, 65 left Short Term Goal (STG) Pt will be independent in a hip stretch ex program incorporating yoga for stretch . STG Duration (02/03/21: MET GOAL) Oyster Culturist Goal (LTG) Improve R hip mobility (PSLR & ER) with pt able to go up/ down stairs without pain and a normal gait pattern. (02/03/21: PSLR: 83 right,95 left ER: 55 right, 60 left LTG Duration 04/13/21 (02/03/21: MET GOAL ) Two Impairment R posterior hip & low back/ sacral pain rated 3/10 Short Term Goal (STG) Decrease hip pain with pt able to put socks/shoes on without pain. (02/03/21: Pain is 1/10) STG Duration 01/27/21 (02/03/21: Improved) Nursing Home Goal (LTG) Decrease pain to 0-1/10 with pt able to sit for 1 hour without an increase in pain. (02/03/21: Pt able to sit through an airline flight without a problem). LTG Duration 04/13/21 (02/03/21: MET GOAL ) One Impairment Lacks appropriate self care HEP. Oyster Culturist Goal (LTG) Pt will be independent with a self care HEP of flexibility exercises. (01/17/21: HEP added: R hamstring/LE neural stretch). (02/03/21: HEP added: R Fig 4 & Piriformis stretch) LTG Duration 04/13/21 (01/17/21: Progressed) Progress Towards Goals Progress Comments Progressed HEP. Goal #3: STG & LTG's MET. LTG #2: MET. Assessment Summary Assessment Pt R hip and low back pain is less with pt now able to sit for prolonged period, amb up/ down stairs and do yoga poses without an increase in pain. She needs further R hip stretching due to pain with donning socks/shoes. She needs a core stabilization program because she has become accustomed to her pelvis being in L rotation and is weak with pelvic L rotation/ trunk R rotation. She has fair>poor core/pelvic stability. Physical Therapy Plan Frequency and Duration Frequency of Treatment 2x/Week Plan of Care Start Date 01/13/21 Plan of Care End Date 04/13/21 Next Visit Focus/Plan Next Note Type Treatment Note Next Visit Plan Correct gait deviations. Review HEP: R Hip ER & Piriformis stretch. MMT trunk, Check shear sacrum to left. Assess L/S involvement (try lumbar traction if pain).
--- NOTE | 2021-02-07 15:50 | PT.OTN ---
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 PT-OP-B Current Condition Start: 01/12/21 17:19 Freq: Status: Active Protocol: Document 01/13/21 12:50 LRN (Rec: 01/13/21 16:35 LRN [id number]) Current Condition History of Current Condition Onset Date 6 months ago Current Complaints R posterior hip pain sometimes with walking when WBing on it . History of Current Condition R posterior hip pain sometimes feels it walking and sometime not. [place] pain in the R hip when lying on it for the past 20 yrs ago. Pt complains of arthritis and pain all over that comes and goes. Prior Treatments and Tests X-ray of hip showed nothing. Developmental History Developmental History Pt is [place] of [facility] . Does yoga, hasn't had great motion in the R hip. Treatment Goals Patient/Caregiver Goals Pt goal is to: -Learn what good yoga poses and exercises she can do to keep from getting worse. -Learn to walk more evenly. 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 Baseline Function- Recreation/Hobbies Walks daily 45-60' with dog, hike 1-1.5 hrs 1x/week, yoga 2x/week. Baseline Function- Other Mother of a 9 yo son, spouse. Current Functional Impairments (Reported) Functional Limitations- ADL's Sitting 1.5 hr before becoming uncomfortable Functional Limitations- Mobility/Gait Sometimes R hip hurts with walking. Functional Limitations- Work/School Sometimes r hip hurts sitting. Personal Factors Other Personal Factors That May Effect As a was treated for Therapy/Recovery underdeveloped hips. PT-OP-C Subjective Start: 01/12/21 17:19 Freq: Status: Active Protocol: Document 02/07/21 15:02 SP (Rec: 02/07/21 16:03 SP [id number]) OP-PT Subjective Patient Comments Patient Comments Pt reports not as diligent at home with HEP, PT and I are making slight changes to see if respond well. Wants to review standing activity and how massage muscles. Pt is incorporating yoga. PT-OP-G Mobility & Gait Start: 01/12/21 17:19 Freq: Status: Active Protocol: Document 01/13/21 12:50 LRN (Rec: 01/13/21 16:35 LRN [id number]) OP Gait Assessment Gait Gait Assistance Required: Independent Assistive Devices Assistive Device None Gait Deviations General Gait Pattern Antalgic Factors Limiting Gait Function Factors Limiting Gait Function Decreased Strength,Pain Stair Climbing Evaluation Evaluation Level of Assist On Stairs Independent Devices Stair Climbing Assistive Devices None Technique/Endurance Stair Climbing Direction Ascend and Descend Stair Climbing Technique Step Over Step PT-OP-H Neuro Start: 01/12/21 17:19 Freq: Status: Active Protocol: Document 01/13/21 12:50 LRN (Rec: 01/13/21 16:35 LRN [id number]) Sensation Evaluation Gross Sensation Gross Sensation WNL PT-OP-J Posture/Palpation/Skin Start: 01/12/21 17:19 Freq: Status: Active Protocol: Document 01/13/21 12:50 LRN (Rec: 01/13/21 16:35 LRN [id number]) Posture Evaluation Position Standing L-Spine Posture Increased Lordosis Pelvis Posture (R) Iliac Crest Superior Knee Posture (L) Genu Varus,(R) Genu Varus Comments Posture Comments R high PSIS, greater trochanter Palpation Assessment Location Sacrum Palpation Location Sacrum Palpation Details Decrease PA at ALA & LASHAE on right. Decreased inferior glide on the left. R hip Palpation Location R Iscial Tuberosity Palpation Details Pt reporting tenderness more internal. PT-OP-K Range of Motion Start: 01/12/21 17:19 Freq: Status: Active Protocol: Document 01/31/21 14:17 LRN (Rec: 01/31/21 15:32 LRN [id number]) Hip Goniometric Range of Motion Hip Right Passive Hip ROM WFL No Testing Position Supine Straight Leg Raise 85 Internal Rotation 45 External Rotation 65 Left Passive Testing Position Supine Straight Leg Raise 100 Internal Rotation 40 External Rotation 70 PT-OP-L Special Tests Start: 01/12/21 17:19 Freq: Status: Active Protocol: Document 01/13/21 12:50 LRN (Rec: 01/13/21 16:35 LRN [id number]) Special Tests Hip Special Tests Thigh Thrust Test Results - right Straight Leg Raise Test Results possible + right Comments 75 deg Mark Test Results + right Comments Pain in buttock Stinchfield Resisted Hip Flexion Test Results - right Scour Test Test Results - right Log Roll Test Test Results - right BLAKE Test Results + right PT-OP-M Strength Start: 01/12/21 17:19 Freq: Status: Active Protocol: Document 01/31/21 14:17 LRN (Rec: 01/31/21 15:32 LRN [id number]) Trunk Strength Trunk Manual Muscle Testing Testing Position Supine Rotation Left 3+ Fair+ Rotation Right 4 Good Core Stabilization L Trunk/pelvic rotation weakness with MMT of R hip flexion. Knee Strength Knee Manual Muscle Testing Right Flexion (S2) 5 Normal Left Flexion (S2) 5 Normal PT-OP-Q Treatments Start: 01/12/21 17:19 Freq: Status: Active Protocol: Document 02/07/21 15:02 SP (Rec: 02/07/21 16:03 SP [id number]) Cardio Equipment Bicycle (Upright) Duration (Minutes) 5 Resistance 6>8 Seat Position 6 Other cued TA and pelvis level- good feedback Therapeutic Exercises Standing Exercises self, STMs Standing Exercise Name R glut med, distal paraspinals Side right Resistance added to HEP Reps/Minutes 2 min Comments give HO next tx, forgot before left- good feedback response Postural training Standing Exercise Name Standing against a wall for proper postural awareness Resistance added to HEP Equipment Used cued TA, spinal elongation Reps/Minutes 3'x 3 Comments good level pelvis post manual Core stab/trunk R rot Standing Exercise Name Core Stab w/trunk R rot ( seated) Side right Resistance Tb #2 added to HEP Equipment Used 18 chair, arms folded across chest Reps/Minutes 3x5 reps Comments standing challenging maintain forward>seated- better form Manual Therapy Treatment Soft Tissue Mobilization muscle energy Body Location R pelvis anterior rotated Comments manual isometric hip/knee extension 5 sec hold x3, 90/90 hip abd isometric 5 sec hold x3 level pelvis post. Instructed ball on wall self STM STMs Body Location R paraspinals, distal QL, glut med, glut min Mobilization Type Myofascial Release,Sustained Pressure,Trigger Point Release Intensity/Depth Moderate Body Position prone over pillow Self-Care/Home Management Treatment Education Patient Education Home Exercise Program Other Education Initiated wall posture and trunk rotation seated for HEP w/ HOs. PT-OP-T Assessment and Plan Start: 01/12/21 17:19 Freq: Status: Active Protocol: Document 02/07/21 15:02 SP (Rec: 02/07/21 16:03 SP [id number]) Physical Therapy Assessment Goals Two Impairment R posterior hip & low back/ sacral pain rated 3/10 Short Term Goal (STG) Decrease hip pain with pt able to put socks/shoes on without pain. (02/03/21: Pain is 1/10) STG Duration 01/27/21 (02/03/21: Improved) Foundry Hand Goal (LTG) Decrease pain to 0-1/10 with pt able to sit for 1 hour without an increase in pain. (02/03/21: Pt able to sit through an airline flight without a problem). LTG Duration 04/13/21 (02/03/21: MET GOAL ) One Impairment Lacks appropriate self care HEP. Jail Goal (LTG) Pt will be independent with a self care HEP of flexibility exercises. (01/17/21: HEP added: R hamstring/LE neural stretch). (02/03/21: HEP added: R Fig 4 & Piriformis stretch) LTG Duration 04/13/21 (01/17/21: Progressed) Assessment Summary Assessment Pt responded well to muscle energy R hip posterior rotation and manual STMs. She feels understands stretching, prefers recheck rotation with TB for home. improved performance seated, painfree and good walll posture effort today to continue at home. Pt reports wanting to keep all appts and add more with PT after already scheduled ones to continue Physical Therapy Plan Frequency and Duration Frequency of Treatment 2x/Week Plan of Care Start Date 01/13/21 Plan of Care End Date 04/13/21 Therapeutic Interventions Therapeutic Interventions Gait Training,Home Exercise Program,Joint Mobilizations, Manual Therapy,Neuromuscular Re-education,Patient/Caregiver Education,Self-Care/Home Management,Soft Tissue Mobilization,Therapeutic Activities,Therapeutic Exercises Modalities Cold Pack/Ice Massage,Hot Packs Next Visit Focus/Plan Next Note Type Treatment Note Next Visit Plan Recheck alignment, wall posture, core rotation, HEP stretching, self STMs. POC: Correct gait deviations. Review HEP: R Hip ER & Piriformis stretch. MMT trunk, Check shear sacrum to left. Assess L/S involvement (try lumbar traction if pain).
--- NOTE | 2021-02-10 16:20 | PT.OTN ---
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 PT-OP-B Current Condition Start: 01/12/21 17:19 Freq: Status: Active Protocol: Document 01/13/21 12:50 LRN (Rec: 01/13/21 16:35 LRN [id number]) Current Condition History of Current Condition Onset Date 6 months ago Current Complaints R posterior hip pain sometimes with walking when WBing on it . History of Current Condition R posterior hip pain sometimes feels it walking and sometime not. [place] pain in the R hip when lying on it for the past 20 yrs ago. Pt complains of arthritis and pain all over that comes and goes. Prior Treatments and Tests X-ray of hip showed nothing. Developmental History Developmental History Pt is [employer] [place] [facility] . Does yoga, hasn't had great motion in the R hip. Treatment Goals Patient/Caregiver Goals Pt goal is to: -Learn what good yoga poses and exercises she can do to keep from getting worse. -Learn to walk more evenly. 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 Baseline Function- Recreation/Hobbies Walks daily 45-60' with dog, hike 1-1.5 hrs 1x/week, yoga 2x/week. Baseline Function- Other Mother of a 9 yo son, spouse. Current Functional Impairments (Reported) Functional Limitations- ADL's Sitting 1.5 hr before becoming uncomfortable Functional Limitations- Mobility/Gait Sometimes R hip hurts with walking. Functional Limitations- Work/School Sometimes r hip hurts sitting. Personal Factors Other Personal Factors That May Effect As a was treated for Therapy/Recovery underdeveloped hips. PT-OP-C Subjective Start: 01/12/21 17:19 Freq: Status: Active Protocol: Document 02/10/21 12:49 LRN (Rec: 02/10/21 16:14 LRN [id number]) OP-PT Subjective Patient Comments Patient Comments Pain comes and goes. PT-OP-G Mobility & Gait Start: 01/12/21 17:19 Freq: Status: Active Protocol: Document 01/13/21 12:50 LRN (Rec: 01/13/21 16:35 LRN [id number]) OP Gait Assessment Gait Gait Assistance Required: Independent Assistive Devices Assistive Device None Gait Deviations General Gait Pattern Antalgic Factors Limiting Gait Function Factors Limiting Gait Function Decreased Strength,Pain Stair Climbing Evaluation Evaluation Level of Assist On Stairs Independent Devices Stair Climbing Assistive Devices None Technique/Endurance Stair Climbing Direction Ascend and Descend Stair Climbing Technique Step Over Step PT-OP-H Neuro Start: 01/12/21 17:19 Freq: Status: Active Protocol: Document 01/13/21 12:50 LRN (Rec: 01/13/21 16:35 LRN [id number]) Sensation Evaluation Gross Sensation Gross Sensation WNL PT-OP-J Posture/Palpation/Skin Start: 01/12/21 17:19 Freq: Status: Active Protocol: Document 01/13/21 12:50 LRN (Rec: 01/13/21 16:35 LRN [id number]) Posture Evaluation Position Standing L-Spine Posture Increased Lordosis Pelvis Posture (R) Iliac Crest Superior Knee Posture (L) Genu Varus,(R) Genu Varus Comments Posture Comments R high PSIS, greater trochanter Palpation Assessment Location Sacrum Palpation Location Sacrum Palpation Details Decrease PA at ALA & LASHAE on right. Decreased inferior glide on the left. R hip Palpation Location R Iscial Tuberosity Palpation Details Pt reporting tenderness more internal. PT-OP-K Range of Motion Start: 01/12/21 17:19 Freq: Status: Active Protocol: Document 01/31/21 14:17 LRN (Rec: 01/31/21 15:32 LRN [id number]) Hip Goniometric Range of Motion Hip Right Passive Hip ROM WFL No Testing Position Supine Straight Leg Raise 85 Internal Rotation 45 External Rotation 65 Left Passive Testing Position Supine Straight Leg Raise 100 Internal Rotation 40 External Rotation 70 PT-OP-L Special Tests Start: 01/12/21 17:19 Freq: Status: Active Protocol: Document 01/13/21 12:50 LRN (Rec: 01/13/21 16:35 LRN [id number]) Special Tests Hip Special Tests Thigh Thrust Test Results - right Straight Leg Raise Test Results possible + right Comments 75 deg Mark Test Results + right Comments Pain in buttock Stinchfield Resisted Hip Flexion Test Results - right Scour Test Test Results - right Log Roll Test Test Results - right BLAKE Test Results + right PT-OP-M Strength Start: 01/12/21 17:19 Freq: Status: Active Protocol: Document 01/31/21 14:17 LRN (Rec: 01/31/21 15:32 LRN [id number]) Trunk Strength Trunk Manual Muscle Testing Testing Position Supine Rotation Left 3+ Fair+ Rotation Right 4 Good Core Stabilization L Trunk/pelvic rotation weakness with MMT of R hip flexion. Knee Strength Knee Manual Muscle Testing Right Flexion (S2) 5 Normal Left Flexion (S2) 5 Normal PT-OP-Q Treatments Start: 01/12/21 17:19 Freq: Status: Active Protocol: Document 02/10/21 12:49 LRN (Rec: 02/10/21 16:14 LRN [id number]) Cardio Equipment Bicycle (Upright) Duration (Minutes) 8 Resistance 6>8 Seat Position 6 Other cued TA and pelvis level- good feedback Treadmill Duration (Minutes) 4 Speed 2.3 Incline 0>1.5 Therapeutic Exercises Supine Exercises Piriformis stretch Supine Exercise Name Piriformis stretch w/slight arch in back Side right Reps/Minutes 4' Comments Extra time to determine max stretch and proper positioning Fig 4 stretch Supine Exercise Name Fig 4, ER stretch f/b active stretch x 10 Side right Reps/Minutes 3' R LE hamstring/neural stretch Supine Exercise Name R Hamstring/LE neural stretch Side right Reps/Minutes 3' Comments Phys & v cuing for max tolerated stretch. Manual Therapy Treatment Soft Tissue Mobilization Pelvic Rebalancing Body Location 8 pt pelvic rebalancing Mobilization Type Sustained Pressure Body Position Prone Comments Improved symmetry of pelvic positioning after mob. Sacrum Body Location R ALA PA, R LASHAE PA, R sacrum shear to left, R infer glide Mobilization Type Myofascial Release,Sustained Pressure Intensity/Depth Moderate Body Position Prone PT-OP-T Assessment and Plan Start: 01/12/21 17:19 Freq: Status: Active Protocol: Document 02/10/21 12:49 LRN (Rec: 02/10/21 16:14 LRN [id number]) Physical Therapy Assessment Rehab Potential Rehabilitation Potential Excellent Evaluation Complexity Number of Personal Factors/Comorbidities 1-2 Number of Body Systems Impaired 4 or More Clinical Presentation at Evaluation Evolving Impairments Impairments Activity Tolerance,Pain,ROM, Soft Tissue Mobility Goals Five Impairment R buttock (sit bone) Pain with walking Impairment R buttock pain with walking son to school (with mild elevation). Shelter Goal (LTG) No R buttock pain with walking son to school. LTG Duration 04/13/21 Three Impairment Decreased R hip mobility Impairment PSLR: 75 right, 110 left ER: 55 right, 65 left Short Term Goal (STG) Pt will be independent in a hip stretch ex program incorporating yoga for stretch . STG Duration (02/03/21: MET GOAL) Shelter Goal (LTG) Improve R hip mobility (PSLR & ER) with pt able to go up/ down stairs without pain and a normal gait pattern. (02/03/21: PSLR: 83 right,95 left ER: 55 right, 60 left LTG Duration 04/13/21 (02/03/21: MET GOAL ) Two Impairment R posterior hip & low back/ sacral pain rated 3/10 Short Term Goal (STG) Decrease hip pain with pt able to put socks/shoes on without pain. (02/03/21: Pain is 1/10) STG Duration 01/27/21 (02/10/21: MET GOAL) Shelter Goal (LTG) Decrease pain to 0-1/10 with pt able to sit for 1 hour without an increase in pain. (02/03/21: Pt able to sit through an airline flight without a problem). LTG Duration 04/13/21 (02/03/21: MET GOAL ) One Impairment Lacks appropriate self care HEP. Public Health Specialist Goal (LTG) Pt will be independent with a self care HEP of flexibility exercises. (01/17/21: HEP added: R hamstring/LE neural stretch). (02/03/21: HEP added: R Fig 4 & Piriformis stretch) LTG Duration 04/13/21 (01/17/21: Progressed) Assessment Summary Assessment Pt met most goals; therefore added new goal to eliminate pain with gait. Pt preferring self STM with tennis ball in sidelying vs standing. R buttock pain reproduced with R LE: hamstring, Piriformis and Fig 4 stretch. After manual therapy, pt R buttock pain was more diffuse and distal and lateral (Glut & GM tendons) instead of on the ischial tuberosity. Pt R buttock pain may be from pelvic instability with strain on R piriformis/GM at R ischial tuberosity, more notably when walking up a small incline. Physical Therapy Plan Frequency and Duration Frequency of Treatment 2x/Week Plan of Care Start Date 01/13/21 Plan of Care End Date 04/13/21 Therapeutic Interventions Therapeutic Interventions Gait Training,Home Exercise Program,Joint Mobilizations, Manual Therapy,Neuromuscular Re-education,Patient/Caregiver Education,Self-Care/Home Management,Soft Tissue Mobilization,Therapeutic Exercises Modalities Cold Pack/Ice Massage,Hot Packs Next Visit Focus/Plan Next Note Type Treatment Note Next Visit Plan Assess trunk strength. Recheck alignment (wall posturing for awareness training), core rotation strengthening, self STMs of Glut Med/max. POC: Correct gait deviations. Monitor for sacral shear to left (ie SB R). Assess L/S involvement (try lumbar traction if pain).
--- NOTE | 2021-02-10 16:20 | PT.OPPOC ---
Physical, Occupational & Speech Therapy At [facility] Current Diagnoses Pain in right hip (02/10/21) Visit Care Team Role Provider Type KRISTEN Santamaria Family Provider Advanced Rail Car Welder Primary Care Provider Specialty: Medical Address: [address] [place] [address], [id number] Email: [email or web address] KRISTEN Mesa Attending Provider Advanced Rail Car Welder Referring Provider Specialty: Medical Address: [address] [place] [address], [id number] Email: [email or web address] Plan Of Care PT-OP-T Assessment and Plan Start: 01/12/21 17:19 Freq: Status: Active Protocol: Document 02/10/21 12:49 LRN (Rec: 02/10/21 16:14 LRN [id number]) Physical Therapy Assessment Rehab Potential Rehabilitation Potential Excellent Evaluation Complexity Number of Personal Factors/Comorbidities 1-2 Number of Body Systems Impaired 4 or More Clinical Presentation at Evaluation Evolving Impairments Impairments Activity Tolerance,Pain,ROM, Soft Tissue Mobility Goals Five Impairment R buttock (sit bone) Pain with walking Impairment R buttock pain with walking son to school (with mild elevation). Blindstitch Hemmer Goal (LTG) No R buttock pain with walking son to school. LTG Duration 04/13/21 Three Impairment Decreased R hip mobility Impairment PSLR: 75 right, 110 left ER: 55 right, 65 left Short Term Goal (STG) Pt will be independent in a hip stretch ex program incorporating yoga for stretch . STG Duration (02/03/21: MET GOAL) Halfway Goal (LTG) Improve R hip mobility (PSLR & ER) with pt able to go up/ down stairs without pain and a normal gait pattern. (02/03/21: PSLR: 83 right,95 left ER: 55 right, 60 left LTG Duration 04/13/21 (02/03/21: MET GOAL ) Two Impairment R posterior hip & low back/ sacral pain rated 3/10 Short Term Goal (STG) Decrease hip pain with pt able to put socks/shoes on without pain. (02/03/21: Pain is 1/10) STG Duration 01/27/21 (02/10/21: MET GOAL) Halfway Goal (LTG) Decrease pain to 0-1/10 with pt able to sit for 1 hour without an increase in pain. (02/03/21: Pt able to sit through an airline flight without a problem). LTG Duration 04/13/21 (02/03/21: MET GOAL ) One Impairment Lacks appropriate self care HEP. Blindstitch Hemmer Goal (LTG) Pt will be independent with a self care HEP of flexibility exercises. (01/17/21: HEP added: R hamstring/LE neural stretch). (02/03/21: HEP added: R Fig 4 & Piriformis stretch) LTG Duration 04/13/21 (01/17/21: Progressed) Assessment Summary Assessment Pt met most goals; therefore added new goal to eliminate pain with gait. Pt preferring self STM with tennis ball in sidelying vs standing. R buttock pain reproduced with R LE: hamstring, Piriformis and Fig 4 stretch. After manual therapy, pt R buttock pain was more diffuse and distal and lateral (Glut & GM tendons) instead of on the ischial tuberosity. Pt R buttock pain may be from pelvic instability with strain on R piriformis/GM at R ischial tuberosity, more notably when walking up a small incline. Physical Therapy Plan Frequency and Duration Frequency of Treatment 2x/Week Plan of Care Start Date 01/13/21 Plan of Care End Date 04/13/21 Therapeutic Interventions Therapeutic Interventions Gait Training,Home Exercise Program,Joint Mobilizations, Manual Therapy,Neuromuscular Re-education,Patient/Caregiver Education,Self-Care/Home Management,Soft Tissue Mobilization,Therapeutic Exercises Modalities Cold Pack/Ice Massage,Hot Packs Next Visit Focus/Plan Next Note Type Treatment Note Next Visit Plan Assess trunk strength. Recheck alignment (wall posturing for awareness training), core rotation strengthening, self STMs of Glut Med/max. POC: Correct gait deviations. Monitor for sacral shear to left (ie SB R). Assess L/S involvement (try lumbar traction if pain). Plan of Care Dates Plan of Care Start Date 01/13/21 Plan of Care End Date 04/13/21 Electronically Signed by: Jenifer Gupta, PT 02/10/21 1620 Please Sign and Return: I have reviewed this Plan of Care and certify that the skilled therapy services above are required to meet the patient?s needs. Physician Signature Date Printed Name and Credentials Clinical Instructor Signature Printed Name and Credentials
--- NOTE | 2021-02-14 09:05 | PT.OTN ---
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 PT-OP-B Current Condition Start: 01/12/21 17:19 Freq: Status: Active Protocol: Document 01/13/21 12:50 LRN (Rec: 01/13/21 16:35 LRN [id number]) Current Condition History of Current Condition Onset Date 6 months ago Current Complaints R posterior hip pain sometimes with walking when WBing on it . History of Current Condition R posterior hip pain sometimes feels it walking and sometime not. [place] pain in the R hip when lying on it for the past 20 yrs ago. Pt complains of arthritis and pain all over that comes and goes. Prior Treatments and Tests X-ray of hip showed nothing. Developmental History Developmental History Pt is [place] [facility] . Does yoga, hasn't had great motion in the R hip. Treatment Goals Patient/Caregiver Goals Pt goal is to: -Learn what good yoga poses and exercises she can do to keep from getting worse. -Learn to walk more evenly. 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 Baseline Function- Recreation/Hobbies Walks daily 45-60' with dog, hike 1-1.5 hrs 1x/week, yoga 2x/week. Baseline Function- Other Mother of a 9 yo son, spouse. Current Functional Impairments (Reported) Functional Limitations- ADL's Sitting 1.5 hr before becoming uncomfortable Functional Limitations- Mobility/Gait Sometimes R hip hurts with walking. Functional Limitations- Work/School Sometimes r hip hurts sitting. Personal Factors Other Personal Factors That May Effect As a was treated for Therapy/Recovery underdeveloped hips. PT-OP-C Subjective Start: 01/12/21 17:19 Freq: Status: Active Protocol: Document 02/14/21 08:22 SP (Rec: 02/14/21 09:23 SP [id number]) OP-PT Subjective Patient Comments Patient Comments Pt reports had alot jaw pain last tx with dental issues and so wasn't deligent on doing HEP. Since better with stretching and HEP given. Finds still pain over R SI prox HS and extends to heel, feels not normal discomfort, resistance trying to pull foot out of boot on R. Pt stated will set up appt with PT when can may have insurance changes. PT-OP-G Mobility & Gait Start: 01/12/21 17:19 Freq: Status: Active Protocol: Document 01/13/21 12:50 LRN (Rec: 01/13/21 16:35 LRN [id number]) OP Gait Assessment Gait Gait Assistance Required: Independent Assistive Devices Assistive Device None Gait Deviations General Gait Pattern Antalgic Factors Limiting Gait Function Factors Limiting Gait Function Decreased Strength,Pain Stair Climbing Evaluation Evaluation Level of Assist On Stairs Independent Devices Stair Climbing Assistive Devices None Technique/Endurance Stair Climbing Direction Ascend and Descend Stair Climbing Technique Step Over Step PT-OP-H Neuro Start: 01/12/21 17:19 Freq: Status: Active Protocol: Document 01/13/21 12:50 LRN (Rec: 01/13/21 16:35 LRN [id number]) Sensation Evaluation Gross Sensation Gross Sensation WNL PT-OP-J Posture/Palpation/Skin Start: 01/12/21 17:19 Freq: Status: Active Protocol: Document 01/13/21 12:50 LRN (Rec: 01/13/21 16:35 LRN [id number]) Posture Evaluation Position Standing L-Spine Posture Increased Lordosis Pelvis Posture (R) Iliac Crest Superior Knee Posture (L) Genu Varus,(R) Genu Varus Comments Posture Comments R high PSIS, greater trochanter Palpation Assessment Location Sacrum Palpation Location Sacrum Palpation Details Decrease PA at ALA & LASHAE on right. Decreased inferior glide on the left. R hip Palpation Location R Iscial Tuberosity Palpation Details Pt reporting tenderness more internal. PT-OP-K Range of Motion Start: 01/12/21 17:19 Freq: Status: Active Protocol: Document 01/31/21 14:17 LRN (Rec: 01/31/21 15:32 LRN [id number]) Hip Goniometric Range of Motion Hip Right Passive Hip ROM WFL No Testing Position Supine Straight Leg Raise 85 Internal Rotation 45 External Rotation 65 Left Passive Testing Position Supine Straight Leg Raise 100 Internal Rotation 40 External Rotation 70 PT-OP-L Special Tests Start: 01/12/21 17:19 Freq: Status: Active Protocol: Document 01/13/21 12:50 LRN (Rec: 01/13/21 16:35 LRN [id number]) Special Tests Hip Special Tests Thigh Thrust Test Results - right Straight Leg Raise Test Results possible + right Comments 75 deg Mark Test Results + right Comments Pain in buttock Stinchfield Resisted Hip Flexion Test Results - right Scour Test Test Results - right Log Roll Test Test Results - right BLAKE Test Results + right PT-OP-M Strength Start: 01/12/21 17:19 Freq: Status: Active Protocol: Document 01/31/21 14:17 LRN (Rec: 01/31/21 15:32 LRN [id number]) Trunk Strength Trunk Manual Muscle Testing Testing Position Supine Rotation Left 3+ Fair+ Rotation Right 4 Good Core Stabilization L Trunk/pelvic rotation weakness with MMT of R hip flexion. Knee Strength Knee Manual Muscle Testing Right Flexion (S2) 5 Normal Left Flexion (S2) 5 Normal PT-OP-Q Treatments Start: 01/12/21 17:19 Freq: Status: Active Protocol: Document 02/14/21 08:22 SP (Rec: 02/14/21 09:23 SP [id number]) Therapeutic Exercises Supine Exercises happy baby Supine Exercise Name assessment effectiveness for HEP Reps/Minutes 30s Comments no stretch, feels like nothing so discontinued adductor SLR Supine Exercise Name added to HEP Side bilateral Reps/Minutes x10 Comments cued side stacked alignment, slow pace self STMs Supine Exercise Name fig 4 sustained pressure ball over piriformis Resistance added to HEP Equipment Used tennis ball> racquetball vs standing at wall Reps/Minutes 2 min total Comments good feedback response, releases w/ breath- more effective vs stand at wall Piriformis stretch Supine Exercise Name Piriformis stretch w/slight arch in back Side right Reps/Minutes 4' Comments good form, response Fig 4 stretch Supine Exercise Name Fig 4, ER stretch f/b active stretch x 10 Side right Reps/Minutes 3' Comments good form, response R LE hamstring/neural stretch Supine Exercise Name R Hamstring/LE neural stretch Side right Reps/Minutes 3' Comments good form, response Standing Exercises Postural training Standing Exercise Name Standing against a wall for proper postural awareness Resistance discussed not performed, recheck next tx Equipment Used cued TA, spinal elongation Reps/Minutes 3'x 3 Comments good level pelvis post manual Core stab/trunk R rot Standing Exercise Name Core Stab w/trunk R rot ( seated) Side right Resistance Tb #2 added to HEP Equipment Used 18 chair, arms folded across chest Reps/Minutes recheck next tx (discussed not performed this tx) Comments standing challenging maintain forward>seated- better form Other Exercises quadruped Other Exercise Name child's pose- added to HEP Reps/Minutes 30s x3 Comments good feedback posterior pelvis stretch Manual Therapy Treatment Soft Tissue Mobilization muscle energy Body Location R pelvis anterior rotated Comments manual isometric hip/knee extension 5 sec hold x3, 90/90 hip abd isometric 5 sec hold x3 level pelvis post. Instructed ball on wall self STM STMs Body Location R pirformis, glut med, glut min Mobilization Type Myofascial Release,Sustained Pressure,Trigger Point Release Intensity/Depth Moderate Body Position prone over pillow Comments manual, then instruction self STMs: fig 4 stretch over racquetball- good feedback releases with breath vs standing at wall found more effective. PT-OP-T Assessment and Plan Start: 01/12/21 17:19 Freq: Status: Active Protocol: Document 02/14/21 08:22 SP (Rec: 02/14/21 09:23 SP [id number]) Physical Therapy Assessment Goals Five Impairment R buttock (sit bone) Pain with walking Impairment R buttock pain with walking son to school (with mild elevation). Manager Mining Goal (LTG) No R buttock pain with walking son to school. LTG Duration 04/13/21 One Impairment Lacks appropriate self care HEP. Halfway Goal (LTG) Pt will be independent with a self care HEP of flexibility exercises. (01/17/21: HEP added: R hamstring/LE neural stretch). (02/03/21: HEP added: R Fig 4 & Piriformis stretch) LTG Duration 04/13/21 (01/17/21: Progressed) Assessment Summary Assessment COMPUTER PROGRAMMER ANALYST checked pelvic alignment with noted R iliac crest anterior rotation, improved correction post manual and muscle energy techniques. Pt responded well to manual and modification self STMs racquetball wall> supine in fig 4 positioning. COMPUTER PROGRAMMER ANALYST discussed adverse reactions if over release and destabilize awareness with understanding will stop. Pt states stretching HEP helpful but not sure enough to assist pain. Initiated hip adduction SLR with noted weakness and painfree to support hip stabilization strengthening. Pt verbalized review HEP, recheck next tx. Pt good response to tx, decreased R SI , piriformis posterior leg pain leaving. Physical Therapy Plan Frequency and Duration Frequency of Treatment 2x/Week Plan of Care Start Date 01/13/21 Plan of Care End Date 04/13/21 Therapeutic Interventions Therapeutic Interventions Gait Training,Home Exercise Program,Joint Mobilizations, Manual Therapy,Neuromuscular Re-education,Patient/Caregiver Education,Self-Care/Home Management,Soft Tissue Mobilization,Therapeutic Exercises Modalities Cold Pack/Ice Massage,Hot Packs Next Visit Focus/Plan Next Note Type Treatment Note Next Visit Plan Recheck: HEP: hip adducation, core seated TB, alignment ( wall posturing for awareness training), core rotation strengthening, self STMs of Glut Med/max. Next tx: core bug, functional strengthening. POC: Correct gait deviations. Monitor for sacral shear to left (ie SB R). Assess L/S involvement (try lumbar traction if pain).
--- NOTE | 2021-02-23 08:19 | PT.OTN ---
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 PT-OP-B Current Condition Start: 01/12/21 17:19 Freq: Status: Active Protocol: Document 01/13/21 12:50 LRN (Rec: 01/13/21 16:35 LRN [id number]) Current Condition History of Current Condition Onset Date 6 months ago Current Complaints R posterior hip pain sometimes with walking when WBing on it . History of Current Condition R posterior hip pain sometimes feels it walking and sometime not. [place] pain in the R hip when lying on it for the past 20 yrs ago. Pt complains of arthritis and pain all over that comes and goes. Prior Treatments and Tests X-ray of hip showed nothing. Developmental History Developmental History Pt is [place] of [facility] . Does yoga, hasn't had great motion in the R hip. Treatment Goals Patient/Caregiver Goals Pt goal is to: -Learn what good yoga poses and exercises she can do to keep from getting worse. -Learn to walk more evenly. 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 Baseline Function- Recreation/Hobbies Walks daily 45-60' with dog, hike 1-1.5 hrs 1x/week, yoga 2x/week. Baseline Function- Other Mother of a 9 yo son, spouse. Current Functional Impairments (Reported) Functional Limitations- ADL's Sitting 1.5 hr before becoming uncomfortable Functional Limitations- Mobility/Gait Sometimes R hip hurts with walking. Functional Limitations- Work/School Sometimes r hip hurts sitting. Personal Factors Other Personal Factors That May Effect As a was treated for Therapy/Recovery underdeveloped hips. PT-OP-C Subjective Start: 01/12/21 17:19 Freq: Status: Active Protocol: Document 02/23/21 07:38 SP (Rec: 02/23/21 08:19 SP [id number]) OP-PT Subjective Patient Comments Patient Comments Pt stated is switching insurance and so not scheduling more appts until knows details to a new plan and PT allowance. Pt is aware to call and schedule more appts when known. Pt reports feels like has no flexibility in lumbar and around sacral area. I feel like I am walking like an old person rounded in low back and can't move pelvis. I didn't think to mention this when first started. If were to fall my low back would be flat/ stiff like a board. Pt stated she hasn't been as diligent with strengthening HEP but does the stretches all the time. PT-OP-G Mobility & Gait Start: 01/12/21 17:19 Freq: Status: Active Protocol: Document 01/13/21 12:50 LRN (Rec: 01/13/21 16:35 LRN [id number]) OP Gait Assessment Gait Gait Assistance Required: Independent Assistive Devices Assistive Device None Gait Deviations General Gait Pattern Antalgic Factors Limiting Gait Function Factors Limiting Gait Function Decreased Strength,Pain Stair Climbing Evaluation Evaluation Level of Assist On Stairs Independent Devices Stair Climbing Assistive Devices None Technique/Endurance Stair Climbing Direction Ascend and Descend Stair Climbing Technique Step Over Step PT-OP-H Neuro Start: 01/12/21 17:19 Freq: Status: Active Protocol: Document 01/13/21 12:50 LRN (Rec: 01/13/21 16:35 LRN [id number]) Sensation Evaluation Gross Sensation Gross Sensation WNL PT-OP-J Posture/Palpation/Skin Start: 01/12/21 17:19 Freq: Status: Active Protocol: Document 01/13/21 12:50 LRN (Rec: 01/13/21 16:35 LRN [id number]) Posture Evaluation Position Standing L-Spine Posture Increased Lordosis Pelvis Posture (R) Iliac Crest Superior Knee Posture (L) Genu Varus,(R) Genu Varus Comments Posture Comments R high PSIS, greater trochanter Palpation Assessment Location Sacrum Palpation Location Sacrum Palpation Details Decrease PA at ALA & LASHAE on right. Decreased inferior glide on the left. R hip Palpation Location R Iscial Tuberosity Palpation Details Pt reporting tenderness more internal. PT-OP-K Range of Motion Start: 01/12/21 17:19 Freq: Status: Active Protocol: Document 01/31/21 14:17 LRN (Rec: 01/31/21 15:32 LRN [id number]) Hip Goniometric Range of Motion Hip Right Passive Hip ROM WFL No Testing Position Supine Straight Leg Raise 85 Internal Rotation 45 External Rotation 65 Left Passive Testing Position Supine Straight Leg Raise 100 Internal Rotation 40 External Rotation 70 PT-OP-L Special Tests Start: 01/12/21 17:19 Freq: Status: Active Protocol: Document 01/13/21 12:50 LRN (Rec: 01/13/21 16:35 LRN [id number]) Special Tests Hip Special Tests Thigh Thrust Test Results - right Straight Leg Raise Test Results possible + right Comments 75 deg Mark Test Results + right Comments Pain in buttock Stinchfield Resisted Hip Flexion Test Results - right Scour Test Test Results - right Log Roll Test Test Results - right BLAKE Test Results + right PT-OP-M Strength Start: 01/12/21 17:19 Freq: Status: Active Protocol: Document 01/31/21 14:17 LRN (Rec: 01/31/21 15:32 LRN [id number]) Trunk Strength Trunk Manual Muscle Testing Testing Position Supine Rotation Left 3+ Fair+ Rotation Right 4 Good Core Stabilization L Trunk/pelvic rotation weakness with MMT of R hip flexion. Knee Strength Knee Manual Muscle Testing Right Flexion (S2) 5 Normal Left Flexion (S2) 5 Normal PT-OP-Q Treatments Start: 01/12/21 17:19 Freq: Status: Active Protocol: Document 02/23/21 07:38 SP (Rec: 02/23/21 08:19 SP [id number]) Therapeutic Exercises Supine Exercises Mark stretch Supine Exercise Name hip flexor stretch- added to HEP Side bilateral Comments cued TA for no LB arch, good stretch feel deep hip flexor Piriformis stretch Supine Exercise Name Piriformis stretch w/slight arch in back Side right Reps/Minutes 4' Comments good form, response R LE hamstring/neural stretch Supine Exercise Name R Hamstring/LE neural stretch Side right Reps/Minutes 3' Comments good form, response Standing Exercises Postural training Standing Exercise Name Standing against a wall for proper postural awareness Resistance discussed not performed, recheck next tx Equipment Used cued TA, spinal elongation Reps/Minutes 3'x 3 Comments good level pelvis post manual Core stab/trunk R rot Standing Exercise Name Core Stab w/trunk R rot ( seated) Side right Resistance Tb #2 Equipment Used 18 chair, arms folded across chest Reps/Minutes x10 Comments sitting Other Exercises 1/2 kneel hip flexor stretch Side bilateral Reps/Minutes 30 x3 Comments cued can reposition quad tail wag Other Exercise Name quadruped Side bilateral Resistance added to HEP for LS lateral SB Reps/Minutes 2x10 Comments good feedback quadruped Other Exercise Name cat/camel and child's pose- added to HEP Reps/Minutes 30s x3 Comments good feedback anterior/ pelvis stretch Manual Therapy Treatment Soft Tissue Mobilization psoas, iliacus Body Location B Mobilization Type Myofascial Release,Sustained Pressure Intensity/Depth Moderate Body Position Hooklying Comments Good feedback painfree Able to complete child's pose stretch alot deeper STMs Body Location B pirformis, glut med, paraspinals Mobilization Type Myofascial Release,Sustained Pressure,Trigger Point Release Intensity/Depth Moderate Body Position prone over pillow Comments manual, verbal review is doing self STMs: fig 4 stretch over racquetball- good feedback releases with breath vs standing at wall found more effective. Self-Care/Home Management Treatment Education Patient Education Home Exercise Program Other Education Initiated mark roman, 1/2 knee hip flexor stretch to assist PPT feeling of stiffness with good response. Pt stated didn't want a hand out PT-OP-T Assessment and Plan Start: 01/12/21 17:19 Freq: Status: Active Protocol: Document 02/23/21 07:38 SP (Rec: 02/23/21 08:19 SP [id number]) Physical Therapy Assessment Goals Five Impairment R buttock (sit bone) Pain with walking Impairment R buttock pain with walking son to school (with mild elevation). Detention Goal (LTG) No R buttock pain with walking son to school. 02/23/21: 3/10 pain still more with pain on incline, still flucutates since started. Has been busy so not as diligent on HEP. LTG Duration 04/13/21 (progressing 02/23/21 ) One Impairment Lacks appropriate self care HEP. Detention Goal (LTG) Pt will be independent with a self care HEP of flexibility exercises. (01/17/21: HEP added: R hamstring/LE neural stretch). (02/03/21: HEP added: R Fig 4 & Piriformis stretch) 02/23/21: HEP added: mark, 1 /2 knee hip flexor stretch, wall posture review, quadruped cat camel LS flex/ ext, initiated LS SB tail wag. LTG Duration 04/13/21 (02/23/21: Progressed) Assessment Summary Assessment Pt responded well to manual hip flexors, posterior pelvis then initiated stretching and ROM to support lumbar extension. Pt stated I feel I can move little better with pelvic rocking. Pt states will be better about HEP performance now that holidays are over. Physical Therapy Plan Frequency and Duration Frequency of Treatment 2x/Week Plan of Care Start Date 01/13/21 Plan of Care End Date 04/13/21 Therapeutic Interventions Therapeutic Interventions Gait Training,Home Exercise Program,Joint Mobilizations, Manual Therapy,Neuromuscular Re-education,Patient/Caregiver Education,Self-Care/Home Management,Soft Tissue Mobilization,Therapeutic Exercises Modalities Cold Pack/Ice Massage,Hot Packs Next Visit Focus/Plan Next Note Type Treatment Note Next Visit Plan Recheck: strengthening HEP: hip adducation, core seated TB , alignment (wall posturing for awareness training), core rotation strengthening, self STMs of Glut Med/max. Next tx: core bug, functional strengthening. POC: Correct gait deviations. Monitor for sacral shear to left (ie SB R). Assess L/S involvement (try lumbar traction if pain).
--- NOTE | 2021-03-16 17:14 | PT-OP ANOTE ---
Per phone, pt states she is waiting to find out what she can do with new insurance. Pt is agreeable she will reschedule if she gets her new insurance before POC expiration on 04/13/21; otherwise pt understands she will be discharged from therapy and she will need a new referral to return. Pt will also notify PT if she no longer needs therapy an will request discharge.
--- NOTE | 2021-04-21 15:10 | PT.OPDS ---
Current Diagnoses Pain in right hip (02/23/21) Visit Care Team Role Provider Type KRISTEN Santamaria Family Provider Advanced Photographer Model Primary Care Provider Specialty: Medical Address: [address] [place] [address], [id number] Email: [email or web address] KRISTEN Mesa Attending Provider Advanced Photographer Model Referring Provider Specialty: Medical Address: [address] [place] [address], [id number] Email: [email or web address] Visit Number Visit Number 8 Discharge Summary PT-OP-B Current Condition Start: 01/12/21 17:19 Freq: Status: Active Protocol: Document 01/13/21 12:50 LRN (Rec: 01/13/21 16:35 LRN [id number]) Current Condition History of Current Condition Onset Date 6 months ago Current Complaints R posterior hip pain sometimes with walking when WBing on it . History of Current Condition R posterior hip pain sometimes feels it walking and sometime not. [place] pain in the R hip when lying on it for the past 20 yrs ago. Pt complains of arthritis and pain all over that comes and goes. Prior Treatments and Tests X-ray of hip showed nothing. Developmental History Developmental History Pt is [place] of [facility] . Does yoga, hasn't had great motion in the R hip. Treatment Goals Patient/Caregiver Goals Pt goal is to: -Learn what good yoga poses and exercises she can do to keep from getting worse. -Learn to walk more evenly. 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 Baseline Function- Recreation/Hobbies Walks daily 45-60' with dog, hike 1-1.5 hrs 1x/week, yoga 2x/week. Baseline Function- Other Mother of a 9 yo son, spouse. Current Functional Impairments (Reported) Functional Limitations- ADL's Sitting 1.5 hr before becoming uncomfortable Functional Limitations- Mobility/Gait Sometimes R hip hurts with walking. Functional Limitations- Work/School Sometimes r hip hurts sitting. Personal Factors Other Personal Factors That May Effect As a was treated for Therapy/Recovery underdeveloped hips. PT-OP-C Subjective Start: 01/12/21 17:19 Freq: Status: Active Protocol: Document 02/23/21 07:38 SP (Rec: 02/23/21 08:19 SP [id number]) OP-PT Subjective Patient Comments Patient Comments Pt stated is switching insurance and so not scheduling more appts until knows details to a new plan and PT allowance. Pt is aware to call and schedule more appts when known. Pt reports feels like has no flexibility in lumbar and around sacral area. I feel like I am walking like an old person rounded in low back and can't move pelvis. I didn't think to mention this when first started. If were to fall my low back would be flat/ stiff like a board. Pt stated she hasn't been as diligent with strengthening HEP but does the stretches all the time. PT-OP-G Mobility & Gait Start: 01/12/21 17:19 Freq: Status: Active Protocol: Document 01/13/21 12:50 LRN (Rec: 01/13/21 16:35 LRN [id number]) OP Gait Assessment Gait Gait Assistance Required: Independent Assistive Devices Assistive Device None Gait Deviations General Gait Pattern Antalgic Factors Limiting Gait Function Factors Limiting Gait Function Decreased Strength,Pain Stair Climbing Evaluation Evaluation Level of Assist On Stairs Independent Devices Stair Climbing Assistive Devices None Technique/Endurance Stair Climbing Direction Ascend and Descend Stair Climbing Technique Step Over Step PT-OP-H Neuro Start: 01/12/21 17:19 Freq: Status: Active Protocol: Document 01/13/21 12:50 LRN (Rec: 01/13/21 16:35 LRN [id number]) Sensation Evaluation Gross Sensation Gross Sensation WNL PT-OP-J Posture/Palpation/Skin Start: 01/12/21 17:19 Freq: Status: Active Protocol: Document 01/13/21 12:50 LRN (Rec: 01/13/21 16:35 LRN [id number]) Posture Evaluation Position Standing L-Spine Posture Increased Lordosis Pelvis Posture (R) Iliac Crest Superior Knee Posture (L) Genu Varus,(R) Genu Varus Comments Posture Comments R high PSIS, greater trochanter Palpation Assessment Location Sacrum Palpation Location Sacrum Palpation Details Decrease PA at ALA & LASHAE on right. Decreased inferior glide on the left. R hip Palpation Location R Iscial Tuberosity Palpation Details Pt reporting tenderness more internal. PT-OP-K Range of Motion Start: 01/12/21 17:19 Freq: Status: Active Protocol: Document 01/31/21 14:17 LRN (Rec: 01/31/21 15:32 LRN [id number]) Hip Goniometric Range of Motion Hip Right Passive Hip ROM WFL No Testing Position Supine Straight Leg Raise 85 Internal Rotation 45 External Rotation 65 Left Passive Testing Position Supine Straight Leg Raise 100 Internal Rotation 40 External Rotation 70 PT-OP-L Special Tests Start: 01/12/21 17:19 Freq: Status: Active Protocol: Document 01/13/21 12:50 LRN (Rec: 01/13/21 16:35 LRN [id number]) Special Tests Hip Special Tests Thigh Thrust Test Results - right Straight Leg Raise Test Results possible + right Comments 75 deg Mark Test Results + right Comments Pain in buttock Stinchfield Resisted Hip Flexion Test Results - right Scour Test Test Results - right Log Roll Test Test Results - right BLAKE Test Results + right PT-OP-M Strength Start: 01/12/21 17:19 Freq: Status: Active Protocol: Document 01/31/21 14:17 LRN (Rec: 01/31/21 15:32 LRN [id number]) Trunk Strength Trunk Manual Muscle Testing Testing Position Supine Rotation Left 3+ Fair+ Rotation Right 4 Good Core Stabilization L Trunk/pelvic rotation weakness with MMT of R hip flexion. Knee Strength Knee Manual Muscle Testing Right Flexion (S2) 5 Normal Left Flexion (S2) 5 Normal PT-OP-T Assessment and Plan Start: 01/12/21 17:19 Freq: Status: Active Protocol: Document 04/21/21 14:48 LRN (Rec: 04/21/21 15:10 LRN [id number]) Physical Therapy Assessment Goals Five Impairment R buttock (sit bone) Pain with walking Impairment R buttock pain with walking son to school (with mild elevation). Aquatic Director Goal (LTG) No R buttock pain with walking son to school. 02/23/21: 3/10 pain still more with pain on incline, still flucutates since started. Has been busy so not as diligent on HEP. LTG Duration 04/13/21 (progressing 02/23/21 ) Three Impairment Decreased R hip mobility Impairment PSLR: 75 right, 110 left ER: 55 right, 65 left Short Term Goal (STG) Pt will be independent in a hip stretch ex program incorporating yoga for stretch . STG Duration (02/03/21: MET GOAL) Aquatic Director Goal (LTG) Improve R hip mobility (PSLR & ER) with pt able to go up/ down stairs without pain and a normal gait pattern. (02/03/21: PSLR: 83 right,95 left ER: 55 right, 60 left LTG Duration 04/13/21 (02/03/21: MET GOAL ) Two Impairment R posterior hip & low back/ sacral pain rated 3/10 Short Term Goal (STG) Decrease hip pain with pt able to put socks/shoes on without pain. (02/03/21: Pain is 1/10) STG Duration 01/27/21 (02/10/21: MET GOAL) Halfway Goal (LTG) Decrease pain to 0-1/10 with pt able to sit for 1 hour without an increase in pain. (02/03/21: Pt able to sit through an airline flight without a problem). LTG Duration 04/13/21 (02/03/21: MET GOAL ) One Impairment Lacks appropriate self care HEP. Aquatic Director Goal (LTG) Pt will be independent with a self care HEP of flexibility exercises. (01/17/21: HEP added: R hamstring/LE neural stretch). (02/03/21: HEP added: R Fig 4 & Piriformis stretch) 02/23/21: HEP added: mark, 1 /2 knee hip flexor stretch, wall posture review, quadruped cat camel LS flex/ ext, initiated LS SB tail wag. LTG Duration 04/13/21 (02/23/21: Progressed) Assessment Summary Assessment Pt was last seen on 02/23/22, two therapy visits after the last progress note. On her last visit, she appeared to have responded well to manual mob of hip flexors, posterior pelvis and stretching and ROM to support lumbar extension was initiated. She had made good progress, but her R buttock pain was not fully resolved. The pt was switching insurance and had agreed to continue therapy if her new insurance allowed and had agreed to return by if she was able. The pt has not yet returned; therefore she is being discharged from therapy due to lack of attendance. The pt would be appropriate for therapy in the future if her R buttock pain persists. Physical Therapy Plan Discharge Physical Therapy Discharge Reasons No Longer Attending PT Discharge Comments We would be happy to work with this pleasant individual again. Thank you for your referral.
== END 2021-04-24 09:33 ==
LOC: PHYS 07:30
PROVIDERS: Absent Provider Registered Nurse; Family Provider Registered Nurse Diabetes Educator; PCP Registered Nurse Diabetes Educator; Referring Provider Registered Nurse; Visit Provider Registered Nurse
DX: M25.551 Pain in right hip (principal)
CPT/HCPCS: 97110; 97140; 97162; 97535

== ENCOUNTER → 2022-07-10 12:35 | Outpatient (CLI) | payer OTHER, MEDICAID, SELFPAY ==
--- NOTE | 2022-07-10 | DI.MG.S_ITS ---
BILATERAL DIGITAL SCREENING MAMMOGRAM 3D/2D WITH CAD: 07/10/2022 CLINICAL: Routine screening. Comparison is made to exams dated: 12/28/2020 mammogram, 12/28/2019 mammogram, and 12/25/2018 mammogram - [facility]. Both breasts are heterogeneously dense, which may obscure small masses (category c / 51-75% glandular tissue). Current study was also evaluated with a Computer Aided Detection (CAD) system. No significant masses, calcifications, or other findings are seen in either breast. There has been no significant interval change. IMPRESSION: NEGATIVE There is no mammographic evidence of malignancy. A 1 year screening mammogram is recommended. Based on the Tyrer Cuzick model (a risk assessment model) the patient's lifetime risk is 13.4% and her 10 year risk is 3.3%. According to the ACR, ACS, and NCCN guidelines, an annual breast MRI exam along with mammogram is recommended if the patient's lifetime risk is 20% or greater. This exam was interpreted at Station ID: [id number]. NOTE: For mammograms, a report in lay terms will be sent to the patient. Approximately 15% of breast malignancies will not be visualized mammographically. In the management of a palpable breast mass, a negative mammogram must not discourage biopsy of a clinically suspicious lesion. Electronically Signed By: Agata otero/islvia:07/10/2022 16:41:40 letter sent: Normal Exam ACR BI-RADS Category 1: Negative [id number]
[2022-07-10 13:57] LABS: Hematocrit 37.7 % (36-46); Hemoglobin 12.8 g/dL (12.0-16.0); Mean Corpuscular HGB Conc 34.1 % (30-36); Mean Corpuscular Hemoglobin 27.8 PG (26-34); Mean Corpuscular Volume 81.7 fL (80-100); Platelet Count 173 X10^3/uL (150-400); Red Blood Cell Count 4.61 X10^6/uL (4.0-5.2); Red Cell Distribution Width 14.1 % (11.6-14.8); White Blood Cell Count 5.8 X10^3/uL (4.5-11.0)
[2022-07-10 14:19] LABS: Alanine Aminotransferase 30 IU/L (<35); Albumin Globulin Ratio 1.3 (1.0-2.8); Alkaline Phosphatase 86 U/L (38-126); Aspartate Aminotransferase 30 IU/L (14-36); BUN Creatinine Ratio 18.6 (6-22); Bilirubin Total 0.8 mg/dL (0.2-1.3); Blood Urea Nitrogen 11 mg/dL (7-17); Calcium 8.8 mg/dL (8.4-10.2); Carbon Dioxide 29 mmol/L (22-32); Chloride 103 mmol/L (98-107); Cholesterol 209 mg/dL (140-199); Estimated Glomerular Filt Rate > 60 mL/min (>60); Globulin 3.2 g/dL (1.7-4.1); Glucose 106 mg/dL (70-100); HDL Cholesterol 66 mg/dL (40-60); HEMOLYSIS 17 (0-50); LDL Cholesterol Calculated 125 mg/dL (<100); Potassium 4.7 mmol/L (3.4-5.1); Sodium 138 mmol/L (137-145); Total Protein 7.2 g/dL (6.3-8.2); Triglycerides 90 mg/dL (35-150)
[2022-07-10 15:01] LABS: TSH w/ Reflex to FT4 2.06 uIU/mL (0.47-4.68)
== END ==
PROVIDERS: Family Provider Registered Nurse Diabetes Educator; PCP Registered Nurse Diabetes Educator; Referring Provider Registered Nurse Diabetes Educator; Visit Provider Registered Nurse Diabetes Educator
DX: Z12.31 Encounter for screening mammogram for malignant neoplasm of breast (principal); E78.5 Hyperlipidemia, unspecified; Z86.39 Personal history of other endocrine, nutritional and metabolic disease
CPT/HCPCS: 36415; 77063; 77067; 80053; 80061; 84443; 85027

== ENCOUNTER → 2023-07-16 14:59 | Outpatient (CLI) | payer OTHER, SELFPAY ==
--- NOTE | 2023-07-16 15:10 | DI.MG.S_ITS ---
BILATERAL DIGITAL SCREENING MAMMOGRAM 3D/2D WITH CAD: 07/16/2023 CLINICAL: Routine screening. Comparison is made to exams dated: 07/10/2022 mammogram, 12/28/2020 mammogram, and 12/28/2019 mammogram - [facility]. Both breasts are heterogeneously dense, which may obscure small masses (category c / 51-75% glandular tissue). Current study was also evaluated with a Computer Aided Detection (CAD) system. No significant masses, calcifications, or other findings are seen in either breast. There has been no significant interval change. IMPRESSION: NEGATIVE There is no mammographic evidence of malignancy. A 1 year screening mammogram is recommended. Based on the Tyrer Cuzick model (a risk assessment model) the patient's lifetime risk is 13.6% and her 10 year risk is 3.6%. According to the ACR, ACS, and NCCN guidelines, an annual breast MRI exam along with mammogram is recommended if the patient's lifetime risk is 20% or greater. This exam was interpreted at Station ID: [id number]. NOTE: For mammograms, a report in lay terms will be sent to the patient. Approximately 15% of breast malignancies will not be visualized mammographically. In the management of a palpable breast mass, a negative mammogram must not discourage biopsy of a clinically suspicious lesion. Electronically Signed By: Kasey Haley M.D., Ph.D. denzel/silvia:07/17/2023 08:54:19 letter sent: Normal Exam ACR BI-RADS Category 1: Negative [id number]
== END ==
LOC: MAMMO 15:08
PROVIDERS: Family Provider Registered Nurse Diabetes Educator; PCP Registered Nurse Diabetes Educator; Referring Provider Registered Nurse Diabetes Educator; Visit Provider Registered Nurse Diabetes Educator
DX: Z12.31 Encounter for screening mammogram for malignant neoplasm of breast (principal); R92.333 Mammographic heterogeneous density, bilateral breasts
CPT/HCPCS: 77063; 77067

== ENCOUNTER → 2024-01-04 08:09 | Outpatient (CLI) | payer OTHER, SELFPAY ==
[2024-01-04 08:55] LABS: Hematocrit 39.2 % (36-46); Hemoglobin 13.2 g/dL (12.0-16.0); Mean Corpuscular HGB Conc 33.6 % (30-36); Mean Corpuscular Hemoglobin 27.7 PG (26-34); Mean Corpuscular Volume 82.5 fL (80-100); Platelet Count 208 X10^3/uL (150-400); Red Blood Cell Count 4.75 X10^6/uL (4.0-5.2); Red Cell Distribution Width 14.7 % (11.6-14.8); White Blood Cell Count 3.9 X10^3/uL (4.5-11.0)
[2024-01-04 09:15] LABS: Alanine Aminotransferase 21 IU/L (<35); Albumin 4.1 g/dL (3.5-5.0); Albumin Globulin Ratio 1.4 (1.0-2.8); Alkaline Phosphatase 82 U/L (38-126); Aspartate Aminotransferase 30 IU/L (14-36); BUN Creatinine Ratio 14.3 (6-22); Blood Urea Nitrogen 10 mg/dL (7-17); Calcium 9.1 mg/dL (8.4-10.2); Carbon Dioxide 27 mmol/L (22-32); Chloride 105 mmol/L (98-107); Cholesterol 213 mg/dL (140-199); Estimated Glomerular Filt Rate > 60 mL/min (>60); Glucose 88 mg/dL (70-100); HDL Cholesterol 63 mg/dL (40-60); HEMOLYSIS < 15 (0-50); LDL Cholesterol Calculated 137 mg/dL (<100); Potassium 3.7 mmol/L (3.4-5.1); Sodium 137 mmol/L (137-145); Total Protein 7.1 g/dL (6.3-8.2); Triglycerides 63 mg/dL (35-150)
[2024-01-04 09:22] LABS: HEMOLYSIS < 15 (0-50); Iron 110 ug/dL (37-170)
[2024-01-04 09:35] LABS: Percent Iron Saturation 32 % (15-50); Total Iron Binding Capacity 348 ug/dL (265-497); Transferrin 281 mg/dL (206-381)
[2024-01-04 09:50] LABS: Ferritin 7 ng/mL (11-264)
[2024-01-04 09:51] LABS: TSH w/ Reflex to FT4 2.37 uIU/mL (0.47-4.68)
== END ==
PROVIDERS: Family Provider Registered Nurse Diabetes Educator; PCP Registered Nurse Diabetes Educator; Referring Provider Registered Nurse Diabetes Educator; Visit Provider Registered Nurse Diabetes Educator
DX: Z01.419 Encounter for gynecological examination (general) (routine) without abnormal findings (principal); Z86.39 Personal history of other endocrine, nutritional and metabolic disease; Z86.2 Personal history of diseases of the blood and blood-forming organs and certain disorders involving the immune mechanism; E78.5 Hyperlipidemia, unspecified
CPT/HCPCS: 80053; 80061; 82728; 83540; 83550; 84443; 85027

== ENCOUNTER → 2024-09-29 14:31 | Outpatient (CLI) | payer OTHER, SELFPAY ==
--- NOTE | 2024-09-29 14:34 | DI.MG.S_ITS ---
MM screening mammo BI: 09/29/2024. BI-RADS: 1 CLINICAL: 54-year old female for bilateral screening mammogram. Tyrer-Cuzick lifetime risk of 6.4%. No personal or first-degree family history of breast cancer. PRIOR EXAMS 07/16/2023, 07/10/2022, 12/28/2020, 12/28/2019. MAMMOGRAPHY TECHNIQUE: 2D and 3D (tomosynthesis) digital mammographic views obtained, with additional images as needed for full coverage. Current study was also evaluated with a Computer Aided Detection (CAD) system. DENSITY B. There are scattered areas of fibroglandular density. MAMMOGRAPHY FINDINGS Bilateral: No suspicious mass, asymmetry, microcalcification, or other abnormality seen. IMPRESSION: * No evidence of malignancy. RECOMMENDATIONS Bilateral * Annual screening mammography. OVERALL ASSESSMENT CATEGORY BI-RADS-1: Negative. The [employer] recommends annual screening mammography beginning at age 40 for women with average risk of breast cancer. ELECTRONICALLY SIGNED: Kasey Haley M.D. on 09/30/2024 at 12:13:35 AM PT Interpreting Station ID: [id number]
== END ==
LOC: MAMMO 14:33
PROVIDERS: Family Provider Registered Nurse Diabetes Educator; PCP Registered Nurse Diabetes Educator; Referring Provider Registered Nurse Diabetes Educator; Visit Provider Registered Nurse Diabetes Educator
DX: Z12.31 Encounter for screening mammogram for malignant neoplasm of breast (principal)
CPT/HCPCS: 77063; 77067